=== PATIENT | male | born 1970 | race American Indian/Alaskan Native ===

== ENCOUNTER 2018-05-16 22:48 | Inpatient (IN) | payer SELFPAY ==
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
[2018-05-16] MEDS ORDERED: NORMODYNE IV ONE (23:18)
--- NOTE | 2018-05-16 23:27 | Cat Scan Report ---
PROCEDURE: CT HEAD/BRAIN WO CON TECHNIQUE: Computerized tomography of the head was performed without contrast material. CT DOSE LENGTH PRODUCT: 954.2 mGycm HISTORY: neuro deficits <6hrs or sx present upon awakening COMPARISONS: None . FINDINGS: Skull and scalp: Normal . Paranasal sinuses: Normal . Ventricles and subarachnoid spaces: Normal . Cerebrum: No evidence of hemorrhage, acute infarction or mass . Cerebellum and brainstem: No evidence of hemorrhage, acute infarction or mass . Vasculature: Normal . Other: None . ASPECTS: 10 IMPRESSION: There is no evidence of an acute intracranial process . This document is electronically signed by Tracey Peres DO., May 16 2018 11:26:03 PM ET
[2018-05-16] MEDS ORDERED: NITRO-BID 2% TP ONE (23:29)
--- NOTE | 2018-05-16 23:31 | Emergency Department Report ---
HPI - General Chief Complaint: Syncope Time Seen by Provider: 05/16/18 22:51 - HPI HPI: [facility] Asked to see this patient in telemedicine consultation. Consultation was performed with assistance of ancillary/medical staff at bedside. Comments: Last Known normal 2219 Door Time:2248 [facility] Contacted: 2249 [facility] first log in: 2253 NIHSS assessment time: 2319 Needle Time: no iv tpa Call back time: 2319 HPI: 48 yom with nausea/vomiting today went to [facility] for medications. Later he was having intense chest pain with nausea and EMS was called. He was being transported in ambulance when he briefly lost consciousness and when he awoke he had left facial droop and left sided weakness. He underwent ct scan head and upon return sxs have markedly improved, he appears some what restless but is coherent. He denied to EMS any prior concern for chest pain. VSS Gen Wn/Wd in Nad TeleStroke Assessment: LOC: 0 LOC questions: 0 LOC Commands : 0 Gaze : 0 Visual [place] : 0 Facial movements : 0 Upper limb Motor 0 Lower limb Motor 0 Limb Coordination - 0 Sensory - - 0 Language - 0 Speech - 1 Neglect / extinction - 0 NIHSS Score: 1 IMPRESSION TIA RO Stroke Angina of unclear etiology Medical Decision Making: Patient is not candidate for alteplase due to non focal / localizing exam Not an IR candidate as low clinical suspicion for LVO by neurologic assessment. Recommendations: - Daily antithrombotics to initiate now if no contraindication. - agree with cardiac work up for chest pain with cta - Further work up with Stroke labs, MRI brain, ECHO, NIVS Carotid will be deferred to inpt neurology service - Needs Inpatient Neurology consultation and follow up - Thank you for allowing us to participate in the care of your patient, if there are any questions please don't hesitate to contact us Discussed plan of care with patient/family/hospital staff Physician: Ulices Wright, DO [facility] ED Past Medical Hx - Past Medical History Previous Medical History?: Yes Hx Hypertension: Yes Hx Diabetes: Yes (no meds) Hx HIV: Yes Additional medical history: HIV+ - Surgical History Past Surgical History?: Yes Additional Surgical History: l) jaw resection - Social History Smoking Status: Current Every Day Smoker Substance Use Type: None - Medications Home Medications: Home Medications Medication Instructions Recorded Confirmed Last Taken Type Efavirenz/Emtricit/Tenofovr Df 1 each PO QDAY 07/23/13 07/23/13 Unknown History [Atripla Tablet] Oxycodone HCl/Acetaminophen 1 each PO Q6HR PRN #30 tablet 07/23/13 Unknown Rx [Percocet 10-325 mg] Sulfamethoxazole/Trimethoprim 1 each PO DAILY 07/23/13 07/23/13 07/22/13 09:00 History [Bactrim Ds] ED Review of Systems ROS: Stated complaint: POSS CVA Other details as noted in HPI Critical care attestation.: If time is entered above; I have spent that time in minutes in the direct care of this critically ill patient, excluding procedure time. ED Disposition Clinical Impression: TIA (transient ischemic attack) Disposition: OP ADMIT IP TO THIS HOSP Is pt being admited?: Yes Condition: Stable Referrals: LISA SUMMERS MD [Primary Care Provider] - 3-5 Days
--- NOTE | 2018-05-16 23:32 | Cat Scan Report ---
CT ANGIO CHEST CLINICAL INDICATION: Male, 48 years of age. chest pain syncope stroke symptoms COMPARISON: None available. TECHNIQUE: Contiguous axial images were obtained. This CT exam was performed using one or more of th e following dose reduction techniques: automated exposure control, adjustment of the mA and/or kV acc ording to patient size, or use of iterative reconstruction technique. Additional sagittal and coronal reformatted images were obtained. IV contrast administered per institution protocol. Images are subm itted for interpretation. FINDINGS: Heart normal in size. Thoracic aorta normal in caliber. No acute dissection or rupture. No central pulmonary embolus. Distal segmental branches are well evaluated. No pathologically enlarged i ntrathoracic or axillary lymph nodes. Tracheobronchial tree is patent. Mild atelectasis at the lung b ases. No dense airspace consolidation or pleural effusion. There is a small nodule in the right upper lobe measuring 5 mm (series 2, image 38). This creates the appearance of a small filling defect on the coronal images within the adjacent artery. Tiny hiatal hernia. Bony thorax is grossly intact. IMPRESSION: 1. No central pulmonary embolus. Limited evaluation of distal segmental branches. 2. 5 mm nodule right upper lobe. This may be postinflammatory. Follow-up chest CT could be performed to ensure stability if clinically indicated. No large consolidation or effusion. This document is electronically signed by Birdie Jones DO., May 16 2018 11:30:18 PM ET
[2018-05-16 23:43] LABS: Mean Corpuscular HGB Conc 36 % (32-34); Mean Corpuscular Volume 81 fl (84-94); Platelet Count 382 K/mm3 (140-440); Red Blood Count 5.65 M/mm3 (3.65-5.03)
[2018-05-16 23:47] LABS: Hemoglobin 16.7 gm/dl (11.8-15.2)
[2018-05-16 23:48] LABS: Hematocrit 45.8 % (35.5-45.6)
[2018-05-16] MEDS ORDERED: ZOFRAN ONE (23:49)
[2018-05-16 23:56] LABS: BUN/Creatinine Ratio 8; Blood Urea Nitrogen 5 mg/dL (9-20); Calcium 9.3 mg/dL (8.4-10.2); Hemolysis Index 12
[2018-05-17 00:04] LABS: INR 0.92 (0.87-1.13)
[2018-05-17 00:05] LABS: Partial Thromboplastin Time 22.2 Sec. (24.2-36.6)
[2018-05-17] MEDS ORDERED: BABY ASPIRIN PO ONE (00:15)
[2018-05-17] MEDS ORDERED: ZOFRAN ODT PO ONE (00:15)
[2018-05-17] MEDS ORDERED: NACL 0.9% 1000 ML 1,000 ML ONE (01:08)
[2018-05-17] MEDS ORDERED: ZOFRAN IV ONE (02:08)
[2018-05-17] MEDS ORDERED: NACL 0.9% 250ML 250 ML IV ONE (02:09)
[2018-05-17 02:40] LABS: Basophils % (Manual) 0 % (0.0-1.8); Eosinophils % (Manual) 0 % (0.0-4.3); Total Cells Counted 100
[2018-05-17 02:41] LABS: Anisocytosis 1+; Platelet Estimate Consistent w Auto
[2018-05-17] MEDS ORDERED: SODIUM CHLORIDE FLUSH SYRINGE 10 ML INJ PRN (03:54)
[2018-05-17] MEDS ORDERED: SODIUM CHLORIDE FLUSH SYRINGE 10 ML IV PRN (03:57)
[2018-05-17] MEDS ORDERED: TYLENOL PO PRN (03:57)
[2018-05-17] MEDS ORDERED: D50W (25GM) Syringe IV PRN (04:03)
[2018-05-17] MEDS ORDERED: NORMODYNE IV PRN (04:46)
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
[2018-05-17] MEDS: PERCOCET 5/325 PO PRN ×3 (08:05→17:57)
[2018-05-17] MEDS: COREG PO SCH ×3 (08:27→22:18)
[2018-05-17] MEDS: LOVENOX SUB-Q SCH ×2 (08:27→10:06)
[2018-05-17] MEDS: ZOFRAN IV PRN ×2 (08:27→17:24)
[2018-05-17] MEDS: NORVASC PO SCH ×2 (08:28→10:07)
[2018-05-17] MEDS: HumaLOG SUB-Q SCH ×4 (08:35→22:19)
[2018-05-17] MEDS: NS/KCL 20MEQ 20 MEQ/1,000 ML BAG IV SCH ×2 (08:35→17:24)
[2018-05-17] MEDS: SODIUM CHLORIDE FLUSH SYRINGE 10 ML IV SCH ×2 (09:30→22:18)
[2018-05-17] MEDS ORDERED: NORVASC PO SCH (10:00)
[2018-05-17] MEDS ORDERED: AMBIEN PO PRN (11:05)
--- NOTE | 2018-05-17 11:09 | Event Note ---
Date: 05/17/18 Patient admitted earlier for the management of CVA symptoms, patient was seen and evaluated this morning. Labs and imaging were reviewed. Patient's complaining generalized pain is very anxious. MRI is pending, neurology consulted. Continue management as outlined in H&P.
--- NOTE | 2018-05-17 12:17 | Progress Note ---
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 this will need to be checked CT of head personally reviewed and is normal to my view Objective - Vital Sign Vital Signs - 12hr 05/17/18 05/17/18 05/17/18 00:30 00:45 01:00 Temperature Pulse Rate 93 H 96 H 103 H Respiratory 14 18 19 Rate Blood Pressure 96/57 105/66 84/52 O2 Sat by Pulse 98 98 Oximetry 05/17/18 05/17/18 05/17/18 01:16 01:30 01:46 Temperature Pulse Rate 100 H 99 H 103 H Respiratory 18 20 15 Rate Blood Pressure 67/39 68/41 101/58 O2 Sat by Pulse 93 96 99 Oximetry 05/17/18 05/17/18 05/17/18 02:00 02:16 02:30 Temperature Pulse Rate 103 H 108 H 109 H Respiratory 20 16 15 Rate Blood Pressure 101/58 141/100 131/92 O2 Sat by Pulse 99 99 Oximetry 05/17/18 05/17/18 05/17/18 02:40 02:50 03:00 Temperature Pulse Rate 102 H 106 H 109 H Respiratory 10 L 8 L 22 Rate Blood Pressure 131/92 152/93 162/90 O2 Sat by Pulse 98 95 97 Oximetry 05/17/18 05/17/18 05/17/18 03:10 03:20 03:30 Temperature Pulse Rate 105 H 106 H 106 H Respiratory 16 22 14 Rate Blood Pressure 162/90 174/90 170/108 O2 Sat by Pulse 94 95 97 Oximetry 05/17/18 05/17/18 05/17/18 03:40 03:50 04:00 Temperature Pulse Rate 107 H 107 H 104 H Respiratory 13 13 17 Rate Blood Pressure 170/108 166/83 170/95 O2 Sat by Pulse 96 Oximetry 05/17/18 05/17/18 05/17/18 04:10 04:20 04:30 Temperature Pulse Rate 102 H 106 H 105 H Respiratory 17 20 19 Rate Blood Pressure 170/95 139/82 139/82 O2 Sat by Pulse Oximetry 05/17/18 05/17/18 05/17/18 04:40 04:50 05:00 Temperature Pulse Rate 106 H 106 H 103 H Respiratory 18 19 18 Rate Blood Pressure 131/72 126/72 117/71 O2 Sat by Pulse Oximetry 05/17/18 05/17/18 05/17/18 05:10 05:30 05:45 Temperature Pulse Rate 103 H 102 H 102 H Respiratory 20 19 19 Rate Blood Pressure 131/72 127/79 115/61 O2 Sat by Pulse Oximetry 05/17/18 05/17/18 05/17/18 06:00 06:15 08:22 Temperature 98.2 F Pulse Rate 116 H 100 H Respiratory 16 19 20 Rate Blood Pressure 115/61 116/78 192/113 O2 Sat by Pulse Oximetry 05/17/18 05/17/18 05/17/18 08:27 09:49 10:34 Temperature Pulse Rate 88 88 Respiratory Rate Blood Pressure 192/113 O2 Sat by Pulse 93 Oximetry - Laboratory Findings CBC and BMP: 05/16/18 23:37 05/16/18 23:37 Abnormal Lab Findings: Abnormal Labs 05/16/18 05/16/18 05/16/18 23:37 23:37 23:37 RBC 5.65 H Hgb 16.7 H Hct 45.8 H MCV 81 L MCHC 36 H APTT 22.2 L Thrombin Time Sodium 136 L Chloride 97.2 L Carbon Dioxide 20 L BUN 5 L Creatinine 0.6 L Glucose 205 H POC Glucose 05/16/18 05/17/18 05/17/18 23:37 08:19 11:41 RBC Hgb Hct MCV MCHC APTT Thrombin Time 13.7 L Sodium Chloride Carbon Dioxide BUN Creatinine Glucose POC Glucose 194 H 245 H
--- NOTE | 2018-05-17 13:07 | Vascular Lab Report ---
PROCEDURE: VL CAROTID DUPLEX BILAT TECHNIQUE: Carotid duplex Doppler ultrasound HISTORY: TIA COMPARISON: None FINDINGS: There is a mild degree of atherosclerotic plaque carotid bulbs. There is no abnormal elevation in flow velocity. ICA/CCA velocity ratios are normal, 0.51 the right a nd 0.60 on the left. There is no evidence of hemodynamically significant stenosis. Specifically, find ings indicate stenoses of less than 50%. Vertebral artery flow is antegrade bilaterally. IMPRESSION: No evidence of any hemodynamically carotid stenosis. This document is electronically signed by Myla Patel MD., May 17 2018 01:05:51 PM ET
[2018-05-17] MEDS: LANTUS SUB-Q SCH (22:18)
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
[2018-05-18] MEDS: PERCOCET 5/325 PO PRN ×2 (04:58→11:39)
[2018-05-18] MEDS: ZOFRAN IV PRN ×2 (04:59→17:32)
[2018-05-18 07:29] LABS: Alanine Aminotransferase 12 units/L (7-56); Albumin 3.6 g/dL (3.9-5); BUN/Creatinine Ratio 11; Blood Urea Nitrogen 8 mg/dL (9-20); Hemolysis Index 20; LDL Cholesterol,Direct 97 mg/dL (50-130)
[2018-05-18 07:37] LABS: HDL Cholesterol 29 mg/dL (40-59)
[2018-05-18] MEDS: HumaLOG SUB-Q SCH ×4 (08:30→22:00)
[2018-05-18 08:57] LABS: Chol/HDL Ratio 4.51 %
[2018-05-18] MEDS: NORVASC PO SCH (11:00)
[2018-05-18] MEDS: COREG PO SCH ×2 (11:00→21:49)
[2018-05-18] MEDS: LOVENOX SUB-Q SCH (11:00)
[2018-05-18] MEDS: SODIUM CHLORIDE FLUSH SYRINGE 10 ML IV SCH ×2 (11:00→21:49)
[2018-05-18] MEDS ORDERED: NON-FORMULARY (Oxycodone Hcl/Acetaminophen [Percocet 10/325 Mg] 1 EACH) PO PRN (15:47)
--- NOTE | 2018-05-18 15:51 | Progress Note ---
Assessment and Plan Assessment and plan: Patient is a 48-year-old -[place] male with hx of HTN, HIV on HAART and DM2 who presented to the ED via EMS for few hours history of chest pain. He described it as mid sternal in location, sharp in character, nonradiating, constant in duration and rated 10 over 10. No known aggravating or relieving factors. He has associated shortness of breath, palpitation, nausea with vomiting times multiple episodes and lightheadedness. EMS witnessed syncopal episode. He was unresponsive for 15 seconds. He awakened with slurred speech, left facial droop and left hemiparesis. Time of onset was 2240. The weakness subsequently improved. He denies headaches, fever, chills, cough, diaphoresis, sore throat, runny nose or congestion, leg swelling, orthopnea or PND. No abdominal pain, constipation, diarrhea, dysuria or frequency Chest pain, rule out ACS -Chest pain pathway -stress test ordered TIA, rule out acute stroke -TIA/stroke protocol -Further evaluation with MRI brain, carotid duplex and echocardiogram Clustophobia, will give valium prior to procedure Hypertensive crisis -On antihypertensives, adjust as needed DM2 with hyperglycemia -On SSI and Lantus Metabolic acidosis -On IVF, will monitor level HIV disease -Resume home meds 5mm nodule RT UL per chest imaging -For out-pt f/u DVT prophylaxis with Lovenox Disp: for d/c when medically stable 05/18/18: ?seizure per Neurology, No Anti-seizure medication. 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 Denies nausea vomiting or diarrhea. Hospitalist Physical - Physical exam Narrative exam: General appearance: Present: no acute distress, obese - EENT Eyes: Present: PERRL, EOM intact ENT: hearing intact, clear oral mucosa - Neck Neck: Present: supple, normal ROM, LEFT NECK ENLARGED - Respiratory Respiratory effort: normal Respiratory: bilateral: CTA - Cardiovascular Rhythm: regular (tachycardia) Heart Sounds: Present: S1 & S2. Absent: rub, click - Extremities Extremities: No edema Peripheral Pulses: within normal limits - Abdominal General gastrointestinal: Present: soft, non-tender, non-distended, normal bowel sounds Male genitourinary: Present: deferred - Integumentary Integumentary: Present: clear, warm, dry - Musculoskeletal Musculoskeletal: gait normal, strength equal bilaterally - Psychiatric Psychiatric: appropriate mood/affect, intact judgment & insight - Neurologic Neurologic: CNII-XII intact, moves all extremities - Constitutional Vitals: Temp Pulse Resp BP Pulse Ox 97.9 F 88 18 108/70 97 05/18/18 03:25 05/18/18 11:00 05/18/18 03:25 05/18/18 11:00 05/18/18 03:25 General appearance: Present: no acute distress, obese Results - Labs CBC & Chem 7: 05/19/18 05:28 05/19/18 05:28 Labs: Laboratory Last Values WBC 9.6 K/mm3 (4.5-11.0) 05/16/18 23:37 RBC 5.65 M/mm3 (3.65-5.03) H 05/16/18 23:37 Hgb 16.7 gm/dl (11.8-15.2) H 05/16/18 23:37 Hct 45.8 % (35.5-45.6) H 05/16/18 23:37 MCV 81 fl (84-94) L 05/16/18 23:37 MCH 30 pg (28-32) 05/16/18 23:37 MCHC 36 % (32-34) H 05/16/18 23:37 RDW 14.0 % (13.2-15.2) 05/16/18 23:37 Plt Count 382 K/mm3 (140-440) 05/16/18 23:37 Add Manual Diff Complete 05/16/18 23:37 Total Counted 100 05/16/18 23:37 Seg Neuts % (Manual) 70.0 % (40.0-70.0) 05/16/18 23:37 Band Neutrophils % 0 % 05/16/18 23:37 Lymphocytes % (Manual) 23.0 % (13.4-35.0) 05/16/18 23:37 Reactive Lymphs % (Man) 0 % 05/16/18 23:37 Monocytes % (Manual) 7.0 % (0.0-7.3) 05/16/18 23:37 Eosinophils % (Manual) 0 % (0.0-4.3) 05/16/18 23:37 Basophils % (Manual) 0 % (0.0-1.8) 05/16/18 23:37 Metamyelocytes % 0 % 05/16/18 23:37 Myelocytes % 0 % 05/16/18 23:37 Promyelocytes % 0 % 05/16/18 23:37 Blast Cells % 0 % 05/16/18 23:37 Nucleated RBC % Not Reportable 05/16/18 23:37 Seg Neutrophils # Man 6.7 K/mm3 (1.8-7.7) 05/16/18 23:37 Band Neutrophils # 0.0 K/mm3 05/16/18 23:37 Lymphocytes # (Manual) 2.2 K/mm3 (1.2-5.4) 05/16/18 23:37 Abs React Lymphs (Man) 0.0 K/mm3 05/16/18 23:37 Monocytes # (Manual) 0.7 K/mm3 (0.0-0.8) 05/16/18 23:37 Eosinophils # (Manual) 0.0 K/mm3 (0.0-0.4) 05/16/18 23:37 Basophils # (Manual) 0.0 K/mm3 (0.0-0.1) 05/16/18 23:37 Metamyelocytes # 0.0 K/mm3 05/16/18 23:37 Myelocytes # 0.0 K/mm3 05/16/18 23:37 Promyelocytes # 0.0 K/mm3 05/16/18 23:37 Blast Cells # 0.0 K/mm3 05/16/18 23:37 WBC Morphology Not Reportable 05/16/18 23:37 Hypersegmented Neuts Not Reportable 05/16/18 23:37 Hyposegmented Neuts Not Reportable 05/16/18 23:37 Hypogranular Neuts Not Reportable 05/16/18 23:37 Smudge Cells Not Reportable 05/16/18 23:37 Toxic Granulation Not Reportable 05/16/18 23:37 Toxic Vacuolation Not Reportable 05/16/18 23:37 Dohle Bodies Not Reportable 05/16/18 23:37 Pelger-Huet Anomaly Not Reportable 05/16/18 23:37 Leticia Rods Not Reportable 05/16/18 23:37 Platelet Estimate Consistent w auto 05/16/18 23:37 Clumped Platelets Not Reportable 05/16/18 23:37 Plt Clumps, EDTA Not Reportable 05/16/18 23:37 Large Platelets Not Reportable 05/16/18 23:37 Giant Platelets Not Reportable 05/16/18 23:37 Platelet Satelliting Not Reportable 05/16/18 23:37 Plt Morphology Comment Not Reportable 05/16/18 23:37 RBC Morphology Not Reportable 05/16/18 23:37 Dimorphic RBCs Not Reportable 05/16/18 23:37 Polychromasia Not Reportable 05/16/18 23:37 Hypochromasia Not Reportable 05/16/18 23:37 Poikilocytosis Not Reportable 05/16/18 23:37 Anisocytosis 1+ 05/16/18 23:37 Microcytosis Not Reportable 05/16/18 23:37 Macrocytosis Not Reportable 05/16/18 23:37 Spherocytes Not Reportable 05/16/18 23:37 Pappenheimer Bodies Not Reportable 05/16/18 23:37 Sickle Cells Not Reportable 05/16/18 23:37 Target Cells Not Reportable 05/16/18 23:37 Tear Drop Cells Not Reportable 05/16/18 23:37 Ovalocytes Not Reportable 05/16/18 23:37 Helmet Cells Not Reportable 05/16/18 23:37 [place] Bodies Not Reportable 05/16/18 23:37 [place] Rings Not Reportable 05/16/18 23:37 [place] Cells Not Reportable 05/16/18 23:37 Bite Cells Not Reportable 05/16/18 23:37 Crenated Cell Not Reportable 05/16/18 23:37 Elliptocytes Not Reportable 05/16/18 23:37 Acanthocytes (Spur) Not Reportable 05/16/18 23:37 Rouleaux Not Reportable 05/16/18 23:37 Hemoglobin C Crystals Not Reportable 05/16/18 23:37 Schistocytes Not Reportable 05/16/18 23:37 Malaria parasites Not Reportable 05/16/18 23:37 Aris Bodies Not Reportable 05/16/18 23:37 Hem Pathologist Commnt No 05/16/18 23:37 PT 12.9 Sec. (12.2-14.9) 05/16/18 23:37 INR 0.92 (0.87-1.13) 05/16/18 23:37 APTT 22.2 Sec. (24.2-36.6) L 05/16/18 23:37 Thrombin Time 13.7 Sec. (15.1-19.6) L 05/16/18 23:37 Sodium 138 mmol/L (137-145) 05/18/18 06:40 Potassium 3.8 mmol/L (3.6-5.0) 05/18/18 06:40 Chloride 100.4 mmol/L (98-107) 05/18/18 06:40 Carbon Dioxide 24 mmol/L (22-30) 05/18/18 06:40 Anion Gap 17 mmol/L 05/18/18 06:40 BUN 8 mg/dL (9-20) L 05/18/18 06:40 Creatinine 0.7 mg/dL (0.8-1.5) L 05/18/18 06:40 Estimated GFR > 60 ml/min 05/18/18 06:40 BUN/Creatinine Ratio 11 % 05/18/18 06:40 Glucose 185 mg/dL (75-100) H 05/18/18 06:40 POC Glucose 245 (70-105) H 05/17/18 11:41 Hemoglobin A1c 11.7 % (4-6) H 05/18/18 06:40 Calcium 9.0 mg/dL (8.4-10.2) 05/18/18 06:40 Total Bilirubin 1.00 mg/dL (0.1-1.2) 05/18/18 06:40 AST 12 units/L (5-40) 05/18/18 06:40 ALT 12 units/L (7-56) 05/18/18 06:40 Alkaline Phosphatase 86 units/L (35-129) 05/18/18 06:40 Troponin T < 0.010 ng/mL (0.00-0.029) 05/17/18 07:59 Total Protein 6.7 g/dL (6.3-8.2) 05/18/18 06:40 Albumin 3.6 g/dL (3.9-5) L 05/18/18 06:40 Albumin/Globulin Ratio 1.2 % 05/18/18 06:40 Triglycerides 98 mg/dL (2-149) 05/18/18 06:40 Cholesterol 131 mg/dL (50-199) 05/18/18 06:40 LDL Cholesterol Direct 97 mg/dL (50-130) 05/18/18 06:40 HDL Cholesterol 29 mg/dL (40-59) L 05/18/18 06:40 Cholesterol/HDL Ratio 4.51 % 05/18/18 06:40 Plasma/Serum Alcohol < 0.01 % (0-0.07) 05/16/18 23:37 Active Medications - Current Medications Current Medications: Generic Name Dose Route Start Last Admin Trade Name Freq PRN Reason Stop Dose Admin Acetaminophen 650 mg 05/17/18 03:57 Tylenol PO Q4H PRN Pain MILD(1-3)/Fever >100.5/MARIA Amlodipine Besylate 10 mg 05/17/18 10:00 05/18/18 11:00 Norvasc PO Not Given QDAY VANESA Atorvastatin Calcium 40 mg 05/17/18 22:00 05/17/18 22:18 Lipitor PO 40 mg QHS VANESA Administration Carvedilol 25 mg 05/17/18 10:00 05/18/18 11:00 Coreg PO 25 mg BID VANESA Administration Clonazepam 0.5 mg 05/17/18 11:06 Klonopin PO BID PRN Anxiety Dextrose 50 ml 05/17/18 04:03 D50w (25gm) Syringe IV PRN PRN Hypoglycemia Enoxaparin Sodium 40 mg 05/17/18 10:00 05/18/18 11:00 Lovenox SUB-Q 40 mg QDAY VANESA Administration Insulin Glargine 15 units 05/17/18 22:00 05/17/18 22:18 Lantus SUB-Q 15 units QHS VANESA Administration Insulin Human Lispro 0 unit 05/17/18 07:30 05/18/18 12:30 Humalog SUB-Q 2 unit ACHS VANESA Administration Protocol Labetalol HCl 10 mg 05/17/18 04:46 05/17/18 08:28 Normodyne IV 10 mg Q4H PRN Administration Blood Pressure Miscellaneous Medication 1 each 05/19/18 10:00 Efavirenz/Emtricit/Tenofovr Df [Atripla Tablet] PO QDAY [facility] Miscellaneous Medication 1 each 05/18/18 15:47 Oxycodone Hcl/Acetaminophen [Percocet 10/325 Mg] PO Q6HR PRN Pain Ondansetron HCl 4 mg 05/17/18 03:57 05/18/18 04:59 Zofran IV 4 mg Q8H PRN Administration Nausea And Vomiting Oxycodone/Acetaminophen 1 tab 05/17/18 03:57 05/18/18 11:39 Percocet 5/325 PO 1 tab Q6H PRN Administration Pain, Moderate (4-6) Sodium Chloride 10 ml 05/17/18 10:00 05/18/18 11:00 Sodium Chloride Flush Syringe 10 Ml IV 10 ml BID VANESA Administration Sodium Chloride 10 ml 05/17/18 03:57 Sodium Chloride Flush Syringe 10 Ml IV PRN PRN LINE FLUSH Trimethoprim/Sulfamethoxazole 1 each 05/19/18 10:00 Bactrim Ds PO DAILY VANESA Zolpidem Tartrate 5 mg 05/17/18 11:05 05/17/18 22:18 Ambien PO 5 mg QHS PRN Administration Sleep
[2018-05-18] MEDS ORDERED: ROXICODONE PO PRN (16:12)
[2018-05-18] MEDS ORDERED: PERCOCET 5/325 PO PRN (16:13)
--- NOTE | 2018-05-18 17:07 | Progress Note ---
Subjective Date of service: 05/18/18 Interval history: await getting MRI to further comment on the course of the stroke pending Objective - Vital Sign Vital Signs - 12hr 05/18/18 11:00 Pulse Rate 88 Blood Pressure 108/70 - Laboratory Findings CBC and BMP: 05/16/18 23:37 05/18/18 06:40 Abnormal Lab Findings: Abnormal Labs 05/16/18 05/16/18 05/16/18 22:54 23:37 23:37 RBC 5.65 H Hgb 16.7 H Hct 45.8 H MCV 81 L MCHC 36 H APTT 22.2 L Thrombin Time Sodium Chloride Carbon Dioxide BUN Creatinine Glucose POC Glucose 203 H Hemoglobin A1c Albumin HDL Cholesterol 05/16/18 05/16/18 05/17/18 23:37 23:37 08:19 RBC Hgb Hct MCV MCHC APTT Thrombin Time 13.7 L Sodium 136 L Chloride 97.2 L Carbon Dioxide 20 L BUN 5 L Creatinine 0.6 L Glucose 205 H POC Glucose 194 H Hemoglobin A1c Albumin HDL Cholesterol 05/17/18 05/18/18 05/18/18 11:41 06:40 06:40 RBC Hgb Hct MCV MCHC APTT Thrombin Time Sodium Chloride Carbon Dioxide BUN 8 L Creatinine 0.7 L Glucose 185 H POC Glucose 245 H Hemoglobin A1c 11.7 H Albumin 3.6 L HDL Cholesterol 29 L
[2018-05-18] MEDS: ASPIRIN PO SCH (17:28)
[2018-05-18] MEDS: LANTUS SUB-Q SCH (21:49)
[2018-05-19 06:03] LABS: Hematocrit 40.7 % (35.5-45.6); Hemoglobin 13.7 gm/dl (11.8-15.2); Mean Corpuscular HGB Conc 34 % (32-34); Mean Corpuscular Volume 83 fl (84-94); Platelet Count 326 K/mm3 (140-440); Red Blood Count 4.92 M/mm3 (3.65-5.03)
[2018-05-19 06:26] LABS: BUN/Creatinine Ratio 13; Blood Urea Nitrogen 9 mg/dL (9-20); Calcium 8.8 mg/dL (8.4-10.2); Hemolysis Index 7
--- NOTE | 2018-05-19 07:55 | Progress Note ---
Assessment and Plan Assessment and plan: Patient is a 48-year-old -[place] male with hx of HTN, HIV on HAART and DM2 who presented to the ED via EMS for few hours history of chest pain. He described it as mid sternal in location, sharp in character, nonradiating, constant in duration and rated 10 over 10. No known aggravating or relieving factors. He has associated shortness of breath, palpitation, nausea with vomiting times multiple episodes and lightheadedness. EMS witnessed syncopal episode. He was unresponsive for 15 seconds. He awakened with slurred speech, left facial droop and left hemiparesis. Time of onset was 2240. The weakness subsequently improved. He denies headaches, fever, chills, cough, diaphoresis, sore throat, runny nose or congestion, leg swelling, orthopnea or PND. No abdominal pain, constipation, diarrhea, dysuria or frequency Chest pain, rule out ACS -Chest pain pathway -Stress test ordered and pending TIA, rule out acute stroke -TIA/stroke protocol -Further evaluation with MRI brain (-), carotid duplex and echocardiogram -Clustophobia, will give ativan prior to procedure Hypertensive crisis -On antihypertensives, adjust as needed DM2 with hyperglycemia -On SSI and Lantus Metabolic acidosis -On IVF, will monitor level HIV disease -Resume home meds 5mm nodule RT UL per chest imaging -For out-pt f/u ?seizure per Neurology, No Anti-seizure medication. 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 Denies nausea vomiting or diarrhea. Hospitalist Physical - Physical exam Narrative exam: General appearance: Present: no acute distress, obese - EENT Eyes: Present: PERRL, EOM intact ENT: hearing intact, clear oral mucosa - Neck Neck: Present: supple, normal ROM, LEFT NECK ENLARGED - Respiratory Respiratory effort: normal Respiratory: bilateral: CTA - Cardiovascular Rhythm: regular (tachycardia) Heart Sounds: Present: S1 & S2. Absent: rub, click - Extremities Extremities: No edema Peripheral Pulses: within normal limits - Abdominal General gastrointestinal: Present: soft, non-tender, non-distended, normal bowel sounds Male genitourinary: Present: deferred - Integumentary Integumentary: Present: clear, warm, dry - Musculoskeletal Musculoskeletal: gait normal, strength equal bilaterally - Psychiatric Psychiatric: appropriate mood/affect, intact judgment & insight - Neurologic Neurologic: CNII-XII intact, moves all extremities - Constitutional Vitals: Temp Pulse Resp BP Pulse Ox 97.8 F 76 18 114/68 100 05/19/18 05:00 05/19/18 05:45 05/19/18 05:00 05/19/18 05:00 05/19/18 05:00 General appearance: Present: no acute distress, obese Results - Labs CBC & Chem 7: 05/19/18 05:28 05/19/18 05:28 Labs: Laboratory Last Values WBC 6.1 K/mm3 (4.5-11.0) 05/19/18 05:28 RBC 4.92 M/mm3 (3.65-5.03) 05/19/18 05:28 Hgb 13.7 gm/dl (11.8-15.2) D 05/19/18 05:28 Hct 40.7 % (35.5-45.6) 05/19/18 05:28 MCV 83 fl (84-94) L 05/19/18 05:28 MCH 28 pg (28-32) 05/19/18 05:28 MCHC 34 % (32-34) 05/19/18 05:28 RDW 14.0 % (13.2-15.2) 05/19/18 05:28 Plt Count 326 K/mm3 (140-440) 05/19/18 05:28 Add Manual Diff Complete 05/16/18 23:37 Total Counted 100 05/16/18 23:37 Seg Neuts % (Manual) 70.0 % (40.0-70.0) 05/16/18 23:37 Band Neutrophils % 0 % 05/16/18 23:37 Lymphocytes % (Manual) 23.0 % (13.4-35.0) 05/16/18 23:37 Reactive Lymphs % (Man) 0 % 05/16/18 23:37 Monocytes % (Manual) 7.0 % (0.0-7.3) 05/16/18 23:37 Eosinophils % (Manual) 0 % (0.0-4.3) 05/16/18 23:37 Basophils % (Manual) 0 % (0.0-1.8) 05/16/18 23:37 Metamyelocytes % 0 % 05/16/18 23:37 Myelocytes % 0 % 05/16/18 23:37 Promyelocytes % 0 % 05/16/18 23:37 Blast Cells % 0 % 05/16/18 23:37 Nucleated RBC % Not Reportable 05/16/18 23:37 Seg Neutrophils # Man 6.7 K/mm3 (1.8-7.7) 05/16/18 23:37 Band Neutrophils # 0.0 K/mm3 05/16/18 23:37 Lymphocytes # (Manual) 2.2 K/mm3 (1.2-5.4) 05/16/18 23:37 Abs React Lymphs (Man) 0.0 K/mm3 05/16/18 23:37 Monocytes # (Manual) 0.7 K/mm3 (0.0-0.8) 05/16/18 23:37 Eosinophils # (Manual) 0.0 K/mm3 (0.0-0.4) 05/16/18 23:37 Basophils # (Manual) 0.0 K/mm3 (0.0-0.1) 05/16/18 23:37 Metamyelocytes # 0.0 K/mm3 05/16/18 23:37 Myelocytes # 0.0 K/mm3 05/16/18 23:37 Promyelocytes # 0.0 K/mm3 05/16/18 23:37 Blast Cells # 0.0 K/mm3 05/16/18 23:37 WBC Morphology Not Reportable 05/16/18 23:37 Hypersegmented Neuts Not Reportable 05/16/18 23:37 Hyposegmented Neuts Not Reportable 05/16/18 23:37 Hypogranular Neuts Not Reportable 05/16/18 23:37 Smudge Cells Not Reportable 05/16/18 23:37 Toxic Granulation Not Reportable 05/16/18 23:37 Toxic Vacuolation Not Reportable 05/16/18 23:37 Dohle Bodies Not Reportable 05/16/18 23:37 Pelger-Huet Anomaly Not Reportable 05/16/18 23:37 Leticia Rods Not Reportable 05/16/18 23:37 Platelet Estimate Consistent w auto 05/16/18 23:37 Clumped Platelets Not Reportable 05/16/18 23:37 Plt Clumps, EDTA Not Reportable 05/16/18 23:37 Large Platelets Not Reportable 05/16/18 23:37 Giant Platelets Not Reportable 05/16/18 23:37 Platelet Satelliting Not Reportable 05/16/18 23:37 Plt Morphology Comment Not Reportable 05/16/18 23:37 RBC Morphology Not Reportable 05/16/18 23:37 Dimorphic RBCs Not Reportable 05/16/18 23:37 Polychromasia Not Reportable 05/16/18 23:37 Hypochromasia Not Reportable 05/16/18 23:37 Poikilocytosis Not Reportable 05/16/18 23:37 Anisocytosis 1+ 05/16/18 23:37 Microcytosis Not Reportable 05/16/18 23:37 Macrocytosis Not Reportable 05/16/18 23:37 Spherocytes Not Reportable 05/16/18 23:37 Pappenheimer Bodies Not Reportable 05/16/18 23:37 Sickle Cells Not Reportable 05/16/18 23:37 Target Cells Not Reportable 05/16/18 23:37 Tear Drop Cells Not Reportable 05/16/18 23:37 Ovalocytes Not Reportable 05/16/18 23:37 Helmet Cells Not Reportable 05/16/18 23:37 [place] Bodies Not Reportable 05/16/18 23:37 Cullen Rings Not Reportable 05/16/18 23:37 Flint Cells Not Reportable 05/16/18 23:37 Bite Cells Not Reportable 05/16/18 23:37 Crenated Cell Not Reportable 05/16/18 23:37 Elliptocytes Not Reportable 05/16/18 23:37 Acanthocytes (Spur) Not Reportable 05/16/18 23:37 Rouleaux Not Reportable 05/16/18 23:37 Hemoglobin C Crystals Not Reportable 05/16/18 23:37 Schistocytes Not Reportable 05/16/18 23:37 Malaria parasites Not Reportable 05/16/18 23:37 Aris Bodies Not Reportable 05/16/18 23:37 Hem Pathologist Commnt No 05/16/18 23:37 PT 12.9 Sec. (12.2-14.9) 05/16/18 23:37 INR 0.92 (0.87-1.13) 05/16/18 23:37 APTT 22.2 Sec. (24.2-36.6) L 05/16/18 23:37 Thrombin Time 13.7 Sec. (15.1-19.6) L 05/16/18 23:37 Sodium 135 mmol/L (137-145) L 05/19/18 05:28 Potassium 3.4 mmol/L (3.6-5.0) L 05/19/18 05:28 Chloride 95.0 mmol/L (98-107) L 05/19/18 05:28 Carbon Dioxide 27 mmol/L (22-30) 05/19/18 05:28 Anion Gap 16 mmol/L 05/19/18 05:28 BUN 9 mg/dL (9-20) 05/19/18 05:28 Creatinine 0.7 mg/dL (0.8-1.5) L 05/19/18 05:28 Estimated GFR > 60 ml/min 05/19/18 05:28 BUN/Creatinine Ratio 13 % 05/19/18 05:28 Glucose 259 mg/dL (75-100) H 05/19/18 05:28 POC Glucose 245 (70-105) H 05/17/18 11:41 Hemoglobin A1c 11.7 % (4-6) H 05/18/18 06:40 Calcium 8.8 mg/dL (8.4-10.2) 05/19/18 05:28 Total Bilirubin 1.00 mg/dL (0.1-1.2) 05/18/18 06:40 AST 12 units/L (5-40) 05/18/18 06:40 ALT 12 units/L (7-56) 05/18/18 06:40 Alkaline Phosphatase 86 units/L (35-129) 05/18/18 06:40 Troponin T < 0.010 ng/mL (0.00-0.029) 05/17/18 07:59 Total Protein 6.7 g/dL (6.3-8.2) 05/18/18 06:40 Albumin 3.6 g/dL (3.9-5) L 05/18/18 06:40 Albumin/Globulin Ratio 1.2 % 05/18/18 06:40 Triglycerides 98 mg/dL (2-149) 05/18/18 06:40 Cholesterol 131 mg/dL (50-199) 05/18/18 06:40 LDL Cholesterol Direct 97 mg/dL (50-130) 05/18/18 06:40 HDL Cholesterol 29 mg/dL (40-59) L 05/18/18 06:40 Cholesterol/HDL Ratio 4.51 % 05/18/18 06:40 Plasma/Serum Alcohol < 0.01 % (0-0.07) 05/16/18 23:37 Active Medications - Current Medications Current Medications: Generic Name Dose Route Start Last Admin Trade Name Freq PRN Reason Stop Dose Admin Acetaminophen 650 mg 05/17/18 03:57 Tylenol PO Q4H PRN Pain MILD(1-3)/Fever >100.5/MARIA Amlodipine Besylate 10 mg 05/17/18 10:00 05/18/18 11:00 Norvasc PO Not Given QDAY VANESA Aspirin 325 mg 05/18/18 17:00 05/18/18 17:28 Aspirin PO 325 mg QDAY VANESA Administration Atorvastatin Calcium 40 mg 05/17/18 22:00 05/18/18 21:49 Lipitor PO 40 mg QHS VANESA Administration Carvedilol 25 mg 05/17/18 10:00 05/18/18 21:49 Coreg PO 25 mg BID VANESA Administration Clonazepam 0.5 mg 05/17/18 11:06 Klonopin PO BID PRN Anxiety Dextrose 50 ml 05/17/18 04:03 D50w (25gm) Syringe IV PRN PRN Hypoglycemia Efavirenz 600 mg 05/19/18 10:00 Sustiva PO DAILY [facility] Emtricitabine 200 mg 05/19/18 10:00 Emtriva PO DAILY [facility] Enoxaparin Sodium 40 mg 05/17/18 10:00 05/18/18 11:00 Lovenox SUB-Q 40 mg QDAY [facility] Administration Insulin Glargine 15 units 05/17/18 22:00 05/18/18 21:49 Lantus SUB-Q 15 units QHS VANESA Administration Insulin Human Lispro 0 unit 05/17/18 07:30 05/18/18 22:00 Humalog SUB-Q 3 unit ACHS VANESA Administration Protocol Labetalol HCl 10 mg 05/17/18 04:46 05/17/18 08:28 Normodyne IV 10 mg Q4H PRN Administration Blood Pressure Ondansetron HCl 4 mg 05/17/18 03:57 05/18/18 17:32 Zofran IV 4 mg Q8H PRN Administration Nausea And Vomiting Oxycodone HCl 5 mg 05/18/18 16:12 Roxicodone PO Q6H PRN Pain, Moderate (4-6) Oxycodone/Acetaminophen 1 tab 05/18/18 16:13 Percocet 5/325 PO Q6H PRN Pain, Moderate (4-6) Sodium Chloride 10 ml 05/17/18 10:00 05/18/18 21:49 Sodium Chloride Flush Syringe 10 Ml IV 10 ml BID VANESA Administration Sodium Chloride 10 ml 05/17/18 03:57 Sodium Chloride Flush Syringe 10 Ml IV PRN PRN LINE FLUSH Tenofovir Disoproxil Fumarate 300 mg 05/19/18 10:00 Viread PO DAILY [facility] Trimethoprim/Sulfamethoxazole 1 each 05/19/18 10:00 Bactrim Ds PO DAILY [facility] Zolpidem Tartrate 5 mg 05/17/18 11:05 05/17/18 22:18 Ambien PO 5 mg QHS PRN Administration Sleep
[2018-05-19] MEDS ORDERED: ATIVAN IV NR (08:00)
--- NOTE | 2018-05-19 08:03 | Discharge Summary ---
Providers - Providers Date of Admission: 05/17/18 04:45 Attending physician: AI JONES MD 05/17/18 03:55 Occupational Therapy Evaluate and Treat [CONS] Routine Comment: Reason For Exam: Neuro deficits Physical Therapy Evaluation and Treat [CONS] Routine Comment: Reason For Exam: Neuro deficits 05/17/18 07:51 Consult to Physician [CONS] Routine Comment: Consulting Provider: PASHA MICHEL Physician Instructions: Reason For Exam: CVA [facility] Reason for admission: CHEST PAIN Condition: Stable Hospital course: Patient is a 48-year-old -N[place]alese male with hx of HTN, HIV on HAART and DM2 who presented to the ED via EMS for few hours history of chest pain. He described it as mid sternal in location, sharp in character, nonradiating, constant in duration and rated 10 over 10. No known aggravating or relieving factors. He has associated shortness of breath, palpitation, nausea with vomiting times multiple episodes and lightheadedness. EMS witnessed syncopal episode. He was unresponsive for 15 seconds. He awakened with slurred speech, left facial droop and left hemiparesis. Time of onset was 2240. The weakness subsequently improved. He denies headaches, fever, chills, cough, diaphoresis, sore throat, runny nose or congestion, leg swelling, orthopnea or PND. No abdominal pain, constipation, diarrhea, dysuria or frequency Chest pain, rule out ACS -Chest pain pathway, STRESS TEST WAS DONE AND NEGATIVE TIA, rule out acute stroke -TIA/stroke protocol -Further evaluation with carotid duplex and echocardiogram WAS ALSO UNREMARKABLE -Clustophobia, will give ativan prior to procedure -MRI brain negative for acute cva Hypertensive crisis -On antihypertensives, DM2 with hyperglycemia -On SSI and Lantus Metabolic acidosis -Resolved HIV disease -Resume home meds 5mm nodule RT UL per chest imaging -For out-pt f/u Seizure per Neurology, No Anti-seizure medication. Facial cancer surgery S/P J[facility] AND [facility] JUST [facility]AL[facility] PER THE PATIENT IN January Disposition: DC- TO HOME OR SELFCARE Time spent for discharge: 35 MINS Core Measure Documentation - Palliative Care Palliative Care/ Comfort Measures: Not Applicable - Core Measures Any of the following diagnoses?: none Exam - Physical Exam Narrative exam: General appearance: Present: no acute distress, obese - EENT Eyes: Present: PERRL, EOM intact ENT: hearing intact, clear oral mucosa - Neck Neck: Present: supple, normal ROM, LEFT NECK ENLARGED - Respiratory Respiratory effort: normal Respiratory: bilateral: CTA - Cardiovascular Rhythm: regular (tachycardia) Heart Sounds: Present: S1 & S2. Absent: rub, click - Extremities Extremities: No edema Peripheral Pulses: within normal limits - Abdominal General gastrointestinal: Present: soft, non-tender, non-distended, normal bowel sounds Male genitourinary: Present: deferred - Integumentary Integumentary: Present: clear, warm, dry - Musculoskeletal Musculoskeletal: gait normal, strength equal bilaterally - Psychiatric Psychiatric: appropriate mood/affect, intact judgment & insight - Neurologic Neurologic: CNII-XII intact, moves all extremities - Constitutional Vitals: Temp Pulse Resp BP Pulse Ox 97.8 F 76 18 114/68 100 05/19/18 05:00 05/19/18 05:45 05/19/18 05:00 05/19/18 05:00 05/19/18 05:00 Plan Activity: advance as tolerated, fall precautions Diet: low salt, diabetic Special Instructions: record daily BP diary, record blood sugar diary, smoking cessation Additional Instructions[facility] MASS Follow up with: LISA SUMMERS MD [Primary Care Provider] - 7 Days Forms: Discharge Signature Page Prescriptions: Insulin Glargine [Lantus VIAL] 20 units SUB-Q QHS #30 units AtorvaSTATin [Lipitor] 40 mg PO QHS #30 tablet Aspirin [Aspirin TAB] 325 mg PO QDAY #30 tablet Carvedilol [Coreg] 25 mg PO BID #60 tablet clonazePAM [KlonoPIN] 0.5 mg PO BID PRN #30 tablet PRN Reason: Anxiety amLODIPine [Norvasc] 10 mg PO QDAY #30 tablet
[2018-05-19] MEDS: HumaLOG SUB-Q SCH ×2 (08:30→11:30)
[2018-05-19] MEDS ORDERED: K-DUR PO ONE (09:00)
[2018-05-19] MEDS ORDERED: SUSTIVA PO SCH (10:00)
[2018-05-19] MEDS ORDERED: [UNRECOGNIZED DRUG - OTHER] PO SCH (10:00)
[2018-05-19] MEDS ORDERED: BACTRIM DS PO SCH (10:00)
[2018-05-19] MEDS ORDERED: EMTRIVA PO SCH (10:00)
[2018-05-19] MEDS ORDERED: VIREAD PO SCH (10:00)
[2018-05-19] MEDS ORDERED: LEXISCAN IV ONE ×2 (11:04→11:05)
[2018-05-19 11:40] VITALS: BP 117/77
--- NOTE | 2018-05-19 13:48 | Magnetic Resonance Report ---
MRI OF THE BRAIN WITHOUT CONTRAST: HISTORY: TIA PROCEDURE: Multiplanar, multisequence MR imaging of the brain without IV contrast was performed. FINDINGS: Compared to the CT head dated 05/16/18. Most of the sequences are limited secondary to extensive patient motion artifact. Having said that, the brain parenchyma signal intensity and its mckeon white interface are within normal limits on all sequences. No evidence for acute ischemia, hemorrhage or mass. No chronic infarct or extra-axial fluid collection. The midline structures are central. The basal cisterns are patent. Normal ventricular size. The orbital cavities and sella turcica demonstrate no abnormality. The visualized paranasal sinuses and mastoid air cells are well aerated. IMPRESSION: Unremarkable non-enhanced MRI of the brain.
[2018-05-19] MEDS: ASPIRIN PO SCH (13:50)
[2018-05-19] MEDS: COREG PO SCH (13:51)
[2018-05-19] MEDS: LOVENOX SUB-Q SCH (13:52)
[2018-05-19] MEDS: SODIUM CHLORIDE FLUSH SYRINGE 10 ML IV SCH (13:53)
[2018-05-19] MEDS: NORVASC PO SCH (13:53)
[2018-05-19] MEDS ORDERED: K-DUR PO NR (14:00)
[2018-05-19] MEDS ORDERED: LANTUS SUB-Q SCH (22:00)
--- NOTE | 2018-05-21 00:57 | Treadmill Report ---
NUCLEAR CARDIAC IMAGING INDICATION FOR PROCEDURE: Chest pain. Informed consent was obtained. Vasodilator stress was achieved with the intravenous administration of 0.4 mg of Lexiscan per protocol. Rest and stress nuclear cardiac imaging were performed following the intravenous administration of 10 and 28 mCi of technetium 99m Myoview respectively. Images were acquired in a 180-degree arc from 45 degrees ALBERT to 45 degrees LPO. After data acquisition and reconstruction, the images were processed and reoriented into the vertical long, horizontal long, and horizontal short axis slices. A polar color map of the horizontal short axis slices was generated and viewed. The rotating planar images reviewed in cinematic format on the computer console. Gated SPECT imaging demonstrates a left ventricular ejection fraction post-stress of 56%. Left ventricular segmental wall motion appears normal. Myocardial perfusion imaging demonstrates no significant cavity change between stress and rest. There is a small mild persistent inferior wall perfusion defect which in the absence of a significant wall motion abnormality is likely artifactual in origin. Nuclear cardiac imaging demonstrates grossly normal post-stress left ventricular systolic function with no significant evidence for myocardial ischemia or necrosis. [facility]# [id number] PEYMAN/JAVON
== END 2018-05-19 18:45 | disposition home or self-care (01) | DRG 69 ==
LOC: ED 22:48 → 4A 05-17 04:45
PROVIDERS: ADMIT Internal Medicine; ATTEND Internal Medicine
DX: G45.9 Transient cerebral ischemic attack, unspecified (principal); E87.2 Acidosis; B20 Human immunodeficiency virus [HIV] disease; I16.1 Hypertensive emergency; G81.94 Hemiplegia, unspecified affecting left nondominant side; R07.9 Chest pain, unspecified; I10 Essential (primary) hypertension; E11.65 Type 2 diabetes mellitus with hyperglycemia; R91.1 Solitary pulmonary nodule; F17.200 Nicotine dependence, unspecified, uncomplicated; R29.810 Facial weakness
CPT/HCPCS: 36415; 70450; 70551; 71275; 78452; 80048; 80053; 80061; 80320; 82962; 83036; 84484; 85007; 85025; 85027; 85610; 85670; 85730; 93005; 93010; 93017; 93306; 93880; G0378; A9270-GY; A9502; G0480; J1650; J1815; J2060; J2405; J2785; J7030

== ENCOUNTER 2018-06-16 18:28 | Inpatient (IN) | payer SELFPAY ==
[2018-06-16 18:43] LABS: Basophils # (Auto) 0.1 K/mm3 (0.0-0.1); Basophils % (Auto) 0.9 % (0.0-1.8); Eosinophils # (Auto) 0.1 K/mm3 (0.0-0.4); Eosinophils % (Auto) 1.7 % (0.0-4.3); Hematocrit 45.1 % (35.5-45.6); Hemoglobin 15.2 gm/dl (11.8-15.2); Lymphocytes # (Auto) 1.9 K/mm3 (1.2-5.4); Lymphocytes % (Auto) 22.5 % (13.4-35.0); Mean Corpuscular HGB Conc 34 % (32-34); Mean Corpuscular Volume 83 fl (84-94); Monocytes # (Auto) 0.5 K/mm3 (0.0-0.8); Monocytes % (Auto) 5.7 % (0.0-7.3); Platelet Count 326 K/mm3 (140-440); Red Blood Count 5.47 M/mm3 (3.65-5.03); Red Cell Distribution Width 14.5 % (13.2-15.2)
--- NOTE | 2018-06-16 18:52 | Cat Scan Report ---
PROCEDURE: CT head without contrast. TECHNIQUE: Axial scans were done through the brain without contrast. HISTORY: neuro deficits <6hrs or sx present upon awakening COMPARISONS: CT head 05/16/2018. FINDINGS: The ventricles are normal in size. The holguin matter and white matter appear normal. There are no mass lesions. There is no intracranial hemorrhage. The calvarium appears intact. The mastoid air cells and paranasal sinuses are well aerated. IMPRESSION: Normal study. This document is electronically signed by Sam Laboy MD., June 16 2018 06:50:33 PM ET
[2018-06-16 18:54] LABS: INR 0.86 (0.87-1.13); Partial Thromboplastin Time 34.2 Sec. (24.2-36.6)
[2018-06-16] MEDS ORDERED: ZOFRAN ONE (18:56)
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
[2018-06-16 19:09] LABS: BUN/Creatinine Ratio 12; Blood Urea Nitrogen 6 mg/dL (9-20); Calcium 9.4 mg/dL (8.4-10.2); Hemolysis Index 90
[2018-06-16] MEDS ORDERED: ACTIVASE ONE (19:12)
[2018-06-16] MEDS ORDERED: ZOFRAN IV ONE (19:14)
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
[2018-06-16] MEDS ORDERED: DULCOLAX PR PRN (19:40)
[2018-06-16] MEDS ORDERED: PHENERGAN PR PRN (19:40)
[2018-06-16] MEDS ORDERED: TYLENOL PO PRN (19:40)
[2018-06-16] MEDS ORDERED: SODIUM CHLORIDE FLUSH SYRINGE 10 ML IV PRN (19:40)
[2018-06-16] MEDS ORDERED: REGLAN PO PRN (19:40)
[2018-06-16] MEDS ORDERED: MILK OF MAGNESIA PO PRN (19:40)
--- NOTE | 2018-06-16 20:01 | History and Physical Report ---
History of Present Illness Date of examination: 06/16/18 Date of admission: 06/16/2018 Chief complaint: Facial droop, left facia weakness History of present illness: Patient is a 48-year-old male with PMHx of HTN, HIV on HAART, DM2 (uncontrolled), h/o bone cancer s/p left mandible resection (11 yrs ago), who presents to ER with complaint of left sided facial droop, right-sided weakness. Patient states that he went to take a nap, he was fine but when when he woke up he noticed the weakness and the facial droop. Pt and mother at the bedside report that he was hospitalized at the beginning of May for the same symptoms, he saw the neurologist and his symptoms gradually resolved. Pt also complaint of frontal headache, nausea and dry hives, he denies any dizziness, denies any visual changes, he denies extremities weakness, denies any recent illness, fever or chills. Pt had an MRI in the ER that was negative, neurology had recommended admission for his acute symptoms. Medications and Allergies Allergies Allergy/AdvReac Type Severity Reaction Status Date / Time No Known Allergies Allergy Verified 07/23/13 06:34 Home Medications Medication Instructions Recorded Confirmed Last Taken Type Efavirenz/Emtricit/Tenofovr Df 1 each PO QDAY 07/23/13 05/17/18 Unknown History [Atripla Tablet] Oxycodone HCl/Acetaminophen 1 each PO Q6HR PRN #30 tablet 07/23/13 05/17/18 Unknown Rx [Percocet 10/325 mg] Sulfamethoxazole/Trimethoprim 1 each PO DAILY 07/23/13 05/17/18 07/22/13 09:00 History [Bactrim DS TAB] Aspirin [Aspirin TAB] 325 mg PO QDAY #30 tablet 05/19/18 Unknown Rx AtorvaSTATin [Lipitor] 40 mg PO QHS #30 tablet 05/19/18 Unknown Rx Carvedilol [Coreg] 25 mg PO BID #60 tablet 05/19/18 Unknown Rx Insulin Glargine [Lantus VIAL] 20 units SUB-Q QHS #30 units 05/19/18 Unknown Rx amLODIPine [Norvasc] 10 mg PO QDAY #30 tablet 05/19/18 Unknown Rx clonazePAM [KlonoPIN] 0.5 mg PO BID PRN #30 tablet 05/19/18 Unknown Rx Active Meds: Active Medications Acetaminophen (Tylenol) 650 mg PO Q4H PRN PRN Reason: Pain MILD(1-3)/Fever >100.5/MARIA Atorvastatin Calcium (Lipitor) 40 mg PO QHS VANESA Bisacodyl (Dulcolax) 10 mg [place] QDAY PRN PRN Reason: Constipation Docusate Sodium (Colace) 100 mg PO BID VANESA Sodium Chloride (Nacl 0.9% 1000 Ml) 1,000 mls @ 42 mls/hr IV DIRECT VANESA Magnesium Hydroxide (Milk Of Magnesia) 30 ml PO Q4H PRN PRN Reason: Constipation Metoclopramide HCl (Reglan) 10 mg PO Q6H PRN PRN Reason: Nausea And Vomiting Ondansetron HCl (Zofran) 4 mg IV Q8H PRN PRN Reason: Nausea And Vomiting Review of Systems Neurological: weakness, tremors, other (facial droop) Exam - Constitutional Vitals: Temp Pulse Resp BP Pulse Ox 108 H 17 152/87 99 06/16/18 19:01 06/16/18 19:01 06/16/18 19:01 06/16/18 19:01 General appearance: Present: no acute distress - EENT Eyes: Present: PERRL ENT: hearing intact - Neck Neck: Present: normal ROM - Respiratory Respiratory effort: normal Respiratory: bilateral: CTA - Cardiovascular Rhythm: regular - Extremities Extremities: no ischemia, No edema Peripheral Pulses: within normal limits - Abdominal General gastrointestinal: Present: deferred, non-tender, non-distended Male genitourinary: Present: deferred - Rectal Rectal Exam: deferred - Integumentary Integumentary: Present: warm, dry - Musculoskeletal Musculoskeletal: right sided weakness (facial) - Neurologic Neurologic: moves all extremities Results - Labs CBC & Chem 7: 06/16/18 18:35 06/16/18 18:35 Labs: Laboratory Last Values WBC 8.6 K/mm3 (4.5-11.0) 06/16/18 18:35 RBC 5.47 M/mm3 (3.65-5.03) H 06/16/18 18:35 Hgb 15.2 gm/dl (11.8-15.2) 06/16/18 18:35 Hct 45.1 % (35.5-45.6) 06/16/18 18:35 MCV 83 fl (84-94) L 06/16/18 18:35 MCH 28 pg (28-32) 06/16/18 18:35 MCHC 34 % (32-34) 06/16/18 18:35 RDW 14.5 % (13.2-15.2) 06/16/18 18:35 Plt Count 326 K/mm3 (140-440) 06/16/18 18:35 Lymph % (Auto) 22.5 % (13.4-35.0) 06/16/18 18:35 Baker % (Auto) 5.7 % (0.0-7.3) 06/16/18 18:35 Eos % (Auto) 1.7 % (0.0-4.3) 06/16/18 18:35 Baso % (Auto) 0.9 % (0.0-1.8) 06/16/18 18:35 Lymph # 1.9 K/mm3 (1.2-5.4) 06/16/18 18:35 Baker # 0.5 K/mm3 (0.0-0.8) 06/16/18 18:35 Eos # 0.1 K/mm3 (0.0-0.4) 06/16/18 18:35 Baso # 0.1 K/mm3 (0.0-0.1) 06/16/18 18:35 Seg Neutrophils % 69.2 % (40.0-70.0) 06/16/18 18:35 Seg Neutrophils # 6.0 K/mm3 (1.8-7.7) 06/16/18 18:35 PT 12.2 Sec. (12.2-14.9) 06/16/18 18:35 INR 0.86 (0.87-1.13) L 06/16/18 18:35 APTT 34.2 Sec. (24.2-36.6) 06/16/18 18:35 Thrombin Time 15.8 Sec. (15.1-19.6) 06/16/18 18:35 Sodium 131 mmol/L (137-145) L 06/16/18 18:35 Potassium 4.2 mmol/L (3.6-5.0) 06/16/18 18:35 Chloride 97.7 mmol/L (98-107) L 06/16/18 18:35 Carbon Dioxide 18 mmol/L (22-30) L 06/16/18 18:35 Anion Gap 20 mmol/L 06/16/18 18:35 BUN 6 mg/dL (9-20) L 06/16/18 18:35 Creatinine 0.5 mg/dL (0.8-1.5) L 06/16/18 18:35 Estimated GFR > 60 ml/min 06/16/18 18:35 BUN/Creatinine Ratio 12 % 06/16/18 18:35 Glucose 320 mg/dL (75-100) H 06/16/18 18:35 POC Glucose 288 (70-105) H 06/16/18 18:37 Calcium 9.4 mg/dL (8.4-10.2) 06/16/18 18:35 Troponin T < 0.010 ng/mL (0.00-0.029) 06/16/18 18:35 Assessment and Plan Assessment and plan: 1. Acute TIA/R/o CVA 2. Left facial droop 3. HTN (BP stable) 4. HIV on HAART (Unknown CD4 count and viral load) 5. DM type 2 (uncontrolled) 6. H/o bone cancer s/p left mandible resection Plan: Admit to Med/tele foor acute TIA/R/o CVA Consult Neurologyfor evaluation Acute ischemic stroke protocol was initiated Bedside swallow study Neuro Check every 2 hours Review home meds Accu-Chek ACHS with insulin per sliding scale Pending MRI/MRA of the brain. neck Echo cardiogram pending PT/OT to evaluate and treat in the a.m. Case management for discipline Care discussed with patient and family, voiced understanding Patient's condition and plan of care D/W with Dr. Rome Advance Directives: Yes VTE prophylaxis?: Mechanical Plan of care discussed with patient/family: Yes
[2018-06-16] MEDS: ZOFRAN IV PRN ×2 (20:16→22:27)
--- NOTE | 2018-06-16 20:25 | XRay Report ---
PROCEDURE: XR CHEST 1V AP TECHNIQUE: Chest radiograph single view. HISTORY: neuro deficit COMPARISONS: None . FINDINGS: Heart: Normal. Mediastinum/Vessels: Normal. Lungs/Pleural space: Normal. Bony thorax: No acute osseous abnormality. Life support devices: None. IMPRESSION: No acute cardiopulmonary abnormality. This document is electronically signed by Jm Sumner MD., June 16 2018 08:23:29 PM ET
[2018-06-16] MEDS: NACL 0.9% 1000 ML 1,000 ML IV SCH (22:27)
[2018-06-16] MEDS: COLACE PO SCH (22:27)
[2018-06-16] MEDS: SODIUM CHLORIDE FLUSH SYRINGE 10 ML IV SCH (22:27)
[2018-06-17] MEDS: ZOFRAN IV PRN ×2 (05:09→12:07)
[2018-06-17 07:53] LABS: Basophils # (Auto) 0.1 K/mm3 (0.0-0.1); Basophils % (Auto) 0.6 % (0.0-1.8); Eosinophils % (Auto) 0.2 % (0.0-4.3); Hematocrit 45.2 % (35.5-45.6); Hemoglobin 15.3 gm/dl (11.8-15.2); Lymphocytes # (Auto) 1.9 K/mm3 (1.2-5.4); Lymphocytes % (Auto) 19.2 % (13.4-35.0); Mean Corpuscular HGB Conc 34 % (32-34); Mean Corpuscular Volume 83 fl (84-94); Monocytes # (Auto) 0.7 K/mm3 (0.0-0.8); Monocytes % (Auto) 6.8 % (0.0-7.3); Platelet Count 338 K/mm3 (140-440); Red Blood Count 5.47 M/mm3 (3.65-5.03); Red Cell Distribution Width 14.4 % (13.2-15.2)
[2018-06-17 08:00] LABS: BUN/Creatinine Ratio 13; Blood Urea Nitrogen 12 mg/dL (9-20); Calcium 9.3 mg/dL (8.4-10.2); Chol/HDL Ratio 4.09 %; HDL Cholesterol 33 mg/dL (40-59); Hemolysis Index 9; LDL Cholesterol,Direct 71 mg/dL (50-130)
[2018-06-17] MEDS: SODIUM CHLORIDE FLUSH SYRINGE 10 ML IV SCH ×2 (09:21→22:23)
[2018-06-17] MEDS ORDERED: APRESOLINE IV ONE (09:30)
[2018-06-17 09:57] LABS: Amphetamine Screen,Urine PRESUMPTIVE NEGATIVE; Benzodiazepines Screen,Urine PRESUMPTIVE NEGATIVE; Cannabinoid Screen,Urine PRESUMPTIVE NEGATIVE; Cocaine Screen,Urine PRESUMPTIVE NEGATIVE; Methadone Screen,Urine PRESUMPTIVE NEGATIVE; Opiate Screen,Urine PRESUMPTIVE NEGATIVE
[2018-06-17] MEDS ORDERED: ASPIRIN PR SCH (10:00)
[2018-06-17] MEDS ORDERED: MORPHINE IV ONE (12:00)
[2018-06-17] MEDS ORDERED: SOLU-Medrol IV ONE (12:09)
[2018-06-17] MEDS ORDERED: ATIVAN IV ONE (12:42)
--- NOTE | 2018-06-17 15:03 | Vascular Lab Report ---
PROCEDURE: VL CAROTID DUPLEX BILAT TECHNIQUE: Duplex Doppler ultrasound of the common, internal and external carotid arteries and the v ertebral arteries was performed bilaterally. Bliss scale imaging, velocity spectral waveform analysis, and color flow Doppler were employed. HISTORY: acute stroke COMPARISONS: None . Note: Measurement of carotid stenosis is based on flow velocity values that correlate with the [place] Symptomatic Carotid Endarterectomy Trial (NASCET) based stenosis criteria using the internal carotid artery diameter as the denominator for stenosis calculation. FINDINGS: RIGHT carotid artery: Velocities: ICA PSV: 70 cm/sec ICA End diastolic: 13 cm/sec CCA PSV: 240 cm/sec IC/CC ratio: 0.3 Plaque/color flow: Mild heterogeneous plaque without significant spectral broadening or abnormal col or flow . RIGHT vertebral artery: Antegrade systolic and diastolic flow LEFT carotid artery: Velocities: ICA PSV: 75 cm/sec ICA End diastolic: 24 cm/sec CCA PSV: 154 cm/sec IC/CC ratio: 0.5 Plaque/color flow: Mild heterogeneous plaque without significant spectral broadening or abnormal col or flow . LEFT vertebral artery: Antegrade systolic and diastolic flow IMPRESSION: 1. RIGHT carotid: No hemodynamically significant (less than 50 percent) internal carotid artery fabian nosis. 2. LEFT carotid: No hemodynamically significant (less than 50 percent) internal carotid artery sten osis. 3. Vertebral arteries: Bilaterally antegrade. 4. Elevated velocities in the proximal common carotid arteries may be related to underlying high card iac output which can be seen in hypertensive patients or athletes. Appearance on the grayscale images does not suggest focal stenosis. This document is electronically signed by Meagan Shanks., Jun 17 2018 03:01:13 PM ET
--- NOTE | 2018-06-17 15:38 | Magnetic Resonance Report ---
MRI BRAIN WITHOUT CONTRAST: 06/16/18 19:41:00 CLINICAL: TIA TECHNIQUE: Axial diffusion, T1, T2, gradient echo T2*, coronal and axial FLAIR and sagittal T1 sequences on a 1.5 [place] magnet. FINDINGS: Motion degrades the quality of the exam on several sequences. No restricted diffusion and no abnormal signal. No mass or mass effect. No hemorrhage, edema or extra-axial collection. No chronic microbleeds on the gradient echo sequence. Normal pituitary and optic chiasm. The brainstem and cerebellum are normal. Intact vascular flow voids. Normal sinuses. The orbits, and soft tissues are normal. Normal calvarium and skull base. IMPRESSION: Normal study.
--- NOTE | 2018-06-17 15:39 | Magnetic Resonance Report ---
MRA HEAD WITHOUT CONTRAST: 06/16/18 19:41:00 CLINICAL: TIA TECHNIQUE: Axial 3-D [id number] MR angiography of the [place] of [place] with review of axial source images. FINDINGS: Intact [place] of [place] with no aneurysm, stenosis or occlusion. Symmetric blood flow in the anterior, middle and posterior cerebral arteries. Normal basilar and vertebral arteries. The right vertebral artery is dominant. IMPRESSION: Normal study.
--- NOTE | 2018-06-17 15:43 | Magnetic Resonance Report ---
MRA NECK WITHOUT AND WITH CONTRAST: 06/17/18 CLINICAL: TIA. COMPARISON:None. TECHNIQUE: Axial 3-D [id number] MR angiography and coronal contrast MR angiography of the carotid and vertebral arteries with review of axial and coronal source images on a 1.5 [place] magnet. 15 cc of Multihance was injected intravenously for the contrast portion of the exam and consent was obtained prior to the administration of the contrast. FINDINGS: A fair quality exam with motion. The bilateral common and internal carotid arteries are intact. Bilateral vertebral arteries are intact. No stenoses or occlusions. Dominant right vertebral artery. IMPRESSION: Normal study with no stenosis and no occlusion.
[2018-06-17] MEDS: COLACE PO SCH ×2 (15:53→22:22)
[2018-06-17] MEDS ORDERED: D50W (25GM) Syringe IV PRN (17:08)
--- NOTE | 2018-06-17 17:10 | Progress Note ---
Assessment and Plan Assessment and plan: Patient is a 48-year-old male with PMHx of HTN, HIV on HAART, DM2 (uncontrolled), h/o bone cancer s/p left mandible resection (11 yrs ago), who presents to ER with complaint of left sided facial droop, right-sided weakness. Patient states that he went to take a nap, he was fine but when when he woke up he noticed the weakness and the facial droop. Pt and mother at the bedside report that he was hospitalized at the beginning of May for the same symptoms, he saw the neurologist and his symptoms gradually resolved. Pt also complaint of frontal headache, nausea and dry hives, he denies any dizziness, denies any visual changes, he denies extremities weakness, denies any recent illness, fever or chills. Pt had an MRI in the ER that was negative, neurology had recommended admission for his acute symptoms. 1. Acute TIA/R/o CVA 2. Left facial droop 3. HTN (BP stable) 4. HIV on HAART (Unknown CD4 count and viral load) 5. DM type 2 (uncontrolled) 6. H/o bone cancer s/p left mandible resection 7. Back pain Plan: continue supprotive care Consult Neurology for evaluation Acute ischemic stroke protocol was initiated Neuro Check every 2 hours Review home meds eval with urinalysis and possible xray if no improvement in pain Accu-Chek ACHS with insulin per sliding scale Pending MRI/MRA of the brain. neck Echo cardiogram pending PT/OT to evaluate and treat in the a.m. Case management for discipline Care discussed with patient and family, voiced understanding History Interval history: Patient seen and examined, no new complaints, states that drooling is normal since his surgery for jaw ca and reconstruction Hospitalist Physical - Physical exam Narrative exam: General appearance: Present: no acute distress - EENT Eyes: Present: PERRL ENT: hearing intact, mild oral depression on the left, but noted surgical changes - Neck Neck: Present: normal ROM - Respiratory Respiratory effort: normal Respiratory: bilateral: CTA - Cardiovascular Rhythm: regular - Extremities Extremities: no ischemia, No edema Peripheral Pulses: within normal limits - Abdominal General gastrointestinal: Present: deferred, non-tender, non-distended Male genitourinary: Present: deferred - Rectal Rectal Exam: deferred - Integumentary Integumentary: Present: warm, dry - Musculoskeletal Musculoskeletal: right sided weakness (facial). Paraspinal tenderness at the level of L5 - Neurologic Neurologic: moves all extremities - Constitutional Vitals: Temp Pulse Resp BP Pulse Ox 97.4 F L 124 H 18 130/86 87 06/17/18 16:03 06/17/18 16:03 06/17/18 16:03 06/17/18 16:03 06/17/18 16:03 General appearance: Present: no acute distress Results - Labs CBC & Chem 7: 06/17/18 06:54 06/17/18 06:54 Labs: Laboratory Last Values WBC 9.7 K/mm3 (4.5-11.0) 06/17/18 06:54 RBC 5.47 M/mm3 (3.65-5.03) H 06/17/18 06:54 Hgb 15.3 gm/dl (11.8-15.2) H 06/17/18 06:54 Hct 45.2 % (35.5-45.6) 06/17/18 06:54 MCV 83 fl (84-94) L 06/17/18 06:54 MCH 28 pg (28-32) 06/17/18 06:54 MCHC 34 % (32-34) 06/17/18 06:54 RDW 14.4 % (13.2-15.2) 06/17/18 06:54 Plt Count 338 K/mm3 (140-440) 06/17/18 06:54 Lymph % (Auto) 19.2 % (13.4-35.0) 06/17/18 06:54 Russell % (Auto) 6.8 % (0.0-7.3) 06/17/18 06:54 Eos % (Auto) 0.2 % (0.0-4.3) 06/17/18 06:54 Baso % (Auto) 0.6 % (0.0-1.8) 06/17/18 06:54 Lymph # 1.9 K/mm3 (1.2-5.4) 06/17/18 06:54 Russell # 0.7 K/mm3 (0.0-0.8) 06/17/18 06:54 Eos # 0.0 K/mm3 (0.0-0.4) 06/17/18 06:54 Baso # 0.1 K/mm3 (0.0-0.1) 06/17/18 06:54 Seg Neutrophils % 73.2 % (40.0-70.0) H 06/17/18 06:54 Seg Neutrophils # 7.1 K/mm3 (1.8-7.7) 06/17/18 06:54 PT 12.2 Sec. (12.2-14.9) 06/16/18 18:35 INR 0.86 (0.87-1.13) L 06/16/18 18:35 APTT 34.2 Sec. (24.2-36.6) 06/16/18 18:35 Thrombin Time 15.8 Sec. (15.1-19.6) 06/16/18 18:35 Sodium 139 mmol/L (137-145) D 06/17/18 06:54 Potassium 3.9 mmol/L (3.6-5.0) 06/17/18 06:54 Chloride 98.7 mmol/L (98-107) 06/17/18 06:54 Carbon Dioxide 24 mmol/L (22-30) 06/17/18 06:54 Anion Gap 20 mmol/L 06/17/18 06:54 BUN 12 mg/dL (9-20) 06/17/18 06:54 Creatinine 0.9 mg/dL (0.8-1.5) D 06/17/18 06:54 Estimated GFR > 60 ml/min 06/17/18 06:54 BUN/Creatinine Ratio 13 % 06/17/18 06:54 Glucose 360 mg/dL (75-100) H 06/17/18 06:54 POC Glucose 352 (70-105) H 06/17/18 16:28 Calcium 9.3 mg/dL (8.4-10.2) 06/17/18 06:54 Troponin T < 0.010 ng/mL (0.00-0.029) 06/17/18 06:54 Triglycerides 238 mg/dL (2-149) H 06/17/18 06:54 Cholesterol 135 mg/dL (50-199) 06/17/18 06:54 LDL Cholesterol Direct 71 mg/dL (50-130) 06/17/18 06:54 HDL Cholesterol 33 mg/dL (40-59) L 06/17/18 06:54 Cholesterol/HDL Ratio 4.09 % 06/17/18 06:54 Urine Opiates Screen Presumptive negative 06/17/18 Unknown Urine Methadone Screen Presumptive negative 06/17/18 Unknown Ur Barbiturates Screen Presumptive negative 06/17/18 Unknown Ur Phencyclidine Scrn Presumptive negative 06/17/18 Unknown Ur Amphetamines Screen Presumptive negative 06/17/18 Unknown U Benzodiazepines Scrn Presumptive negative 06/17/18 Unknown Urine Cocaine Screen Presumptive negative 06/17/18 Unknown U Marijuana (THC) Screen Presumptive negative 06/17/18 Unknown Drugs of Abuse Note Disclamer 06/17/18 Unknown Active Medications - Current Medications Current Medications: Generic Name Dose Route Start Last Admin Trade Name Freq PRN Reason Stop Dose Admin Acetaminophen 650 mg 06/16/18 19:40 Tylenol PO Q4H PRN Pain MILD(1-3)/Fever >100.5/MARIA Aspirin 300 mg 06/17/18 10:00 06/17/18 15:53 Aspirin MD Not Given QDAY [facility] Atorvastatin Calcium 40 mg 06/16/18 22:00 06/16/18 22:27 Lipitor PO Not Given QHS VANESA Bisacodyl 10 mg 06/16/18 19:40 Dulcolax MD QDAY PRN Constipation Docusate Sodium 100 mg 06/16/18 22:00 06/17/18 15:53 Colace PO Not Given BID [facility] Sodium Chloride 1,000 mls @ 42 mls/hr 06/16/18 20:00 06/16/18 22:27 Nacl 0.9% 1000 Ml IV 42 mls/hr DIRECT VANESA Administration Magnesium Hydroxide 30 ml 06/16/18 19:40 Milk Of Magnesia PO Q4H PRN Constipation Metoclopramide HCl 10 mg 06/16/18 19:40 Reglan PO Q6H PRN Nausea And Vomiting Ondansetron HCl 4 mg 06/16/18 19:40 06/17/18 12:07 Zofran IV 4 mg Q8H PRN Administration Nausea And Vomiting Promethazine HCl 25 mg 06/16/18 19:40 Phenergan MD Q6H PRN Nausea And Vomiting Sodium Chloride 10 ml 06/16/18 22:00 06/17/18 09:21 Sodium Chloride Flush Syringe 10 Ml IV 10 ml BID VANESA Administration Sodium Chloride 10 ml 06/16/18 19:40 Sodium Chloride Flush Syringe 10 Ml IV PRN PRN LINE FLUSH Nutrition/Malnutrition Assess - Dietary Evaluation Nutrition/Malnutrition Findings: Nutrition Notes Start: 06/17/18 08:57 Freq: Status: Active Protocol: Document 06/17/18 08:57 TW (Rec: 06/17/18 09:12 TW [id number]) Co-Sign 06/17/18 08:57 LP Nutrition Notes Need for Assessment generated from: MD Order,Education Initial or Follow up Assessment Current Diagnosis Diabetes,Hypertension,Stroke Other Pertinent Diagnosis HIV Current Diet NPO Labs/Tests B Pertinent Medications Lipitor Height 5 ft 10 in Weight 107.048 kg [place] Body Weight (kg) 75.45 BMI 33.8 Weight Status Obese Subjective/Other Information MD consult for diet education. Pt did not want education, but stated he would look over the handouts provided on his own time. Provided stroke and DM education. Burn Absent Trauma Absent #1 Nutrition Diagnosis Food and nutrition-related knowledge deficit Etiology lack of prior knowledge As Evidenced by Signs and Symptoms B Is patient on ventilator? No Is Patient Ambulatory and/or Out of Bed Yes REE-([facility]-ambulatory/OOB) [ 2543.749 [id number]] Kcal/Kg value to use for calculation 20 Approximate Energy Requirements Using 2141 kcal/Kg Calculation Used for Recommendations Kcal/kg Additional Notes Protein needs (AdjBW: 91 kg) ( 0.8-1.0 g/kg) (73-91 g/day) Fluid needs: 1ml/kcal Nutrition Intervention Change Diet Order: Advance when medically feasible Teaching Recipient Patient Learning Readiness Poor Teaching Methods Handout Response to Teaching Reinforcement needed Education Handouts Provided "Carbohydrate Counting for People with Diabetes" "Stroke Nutrition Therapy" Barriers to Learning Motivation RD phone number provided Yes Patient aware of follow up options Yes Goal #1 Adhere to diet recommendations Anticipated Discharge Needs: Consistent CHO diet Follow-Up By: 06/23/18 Additional Comments F/U for BG level, diet advancement and education reinforcement
[2018-06-17] MEDS: MORPHINE IV PRN ×2 (18:39→23:37)
--- NOTE | 2018-06-17 18:56 | Consultation ---
History of Present Illness Consult date: 06/17/18 Chief complaint: focal neuro deficits History of present illness: This is a 48 YO m, HIV +(cd 4, viral load and medical compliance unknown) who presented to the ED with left facial droop and weakness on the right. Pt is sleeping and aarouses easily but not giving any history. Says symptoms are still there but not noted on exam. Past History Past Medical History: diabetes, HIV/AIDS, hypertension, other (bone cancer) Past Surgical History: Other (none noted) Social history: lives with family Family history: hypertension Medications and Allergies Allergies Allergy/AdvReac Type Severity Reaction Status Date / Time No Known Allergies Allergy Verified 07/23/13 06:34 Home Medications Medication Instructions Recorded Confirmed Last Taken Type Efavirenz/Emtricit/Tenofovr Df 1 each PO QDAY 07/23/13 06/17/18 Unknown History [Atripla Tablet] Aspirin [Aspirin TAB] 325 mg PO QDAY #30 tablet 05/19/18 06/17/18 Unknown Rx AtorvaSTATin [Lipitor] 40 mg PO QHS #30 tablet 05/19/18 06/17/18 Unknown Rx Insulin Glargine [Lantus VIAL] 20 units SUB-Q QHS #30 units 05/19/18 06/17/18 Unknown Rx clonazePAM [KlonoPIN] 0.5 mg PO BID PRN #30 tablet 05/19/18 06/17/18 Unknown Rx Active Meds: Active Medications Acetaminophen (Tylenol) 650 mg PO Q4H PRN PRN Reason: Pain MILD(1-3)/Fever >100.5/MARIA Aspirin (Aspirin) 325 mg PO QDAY [facility] Atorvastatin Calcium (Lipitor) 40 mg PO QHS [facility] Last Admin: 06/16/18 22:27 Dose: Not Given Documented by: Atorvastatin Calcium (Lipitor) 40 mg PO QHS [facility] Bisacodyl (Dulcolax) 10 mg DE QDAY PRN PRN Reason: Constipation Clonazepam (Klonopin) 0.5 mg PO BID PRN PRN Reason: Anxiety Dextrose (D50w (25gm) Syringe) 50 ml IV PRN PRN PRN Reason: Hypoglycemia Docusate Sodium (Colace) 100 mg PO BID [facility] Last Admin: 06/17/18 15:53 Dose: Not Given Documented by: Efavirenz (Sustiva) 600 mg PO QDAY [facility] Emtricitabine (Emtriva) 200 mg PO QDAY [facility] Sodium Chloride (Nacl 0.9% 1000 Ml) 1,000 mls @ 42 mls/hr IV DIRECT VANESA Last Admin: 06/16/18 22:27 Dose: 42 mls/hr Documented by: Insulin Glargine (Lantus) 20 units SUB-Q QHS [facility] Insulin Human Lispro (Humalog) 0 unit SUB-Q ACHS [facility]; Protocol Insulin Human Lispro (Humalog) 0 unit SUB-Q ONCE ONE; Protocol Stop: 06/17/18 19:01 Last Admin: 06/17/18 18:38 Dose: 10 unit Documented by: Magnesium Hydroxide (Milk Of Magnesia) 30 ml PO Q4H PRN PRN Reason: Constipation Metoclopramide HCl (Reglan) 10 mg PO Q6H PRN PRN Reason: Nausea And Vomiting Morphine Sulfate (Morphine) 2 mg IV Q4H PRN PRN Reason: Pain, Moderate (4-6) Last Admin: 06/17/18 18:39 Dose: 2 mg Documented by: Ondansetron HCl (Zofran) 4 mg IV Q8H PRN PRN Reason: Nausea And Vomiting Last Admin: 06/17/18 12:07 Dose: 4 mg Documented by: Promethazine HCl (Phenergan) 25 mg DE Q6H PRN PRN Reason: Nausea And Vomiting Sodium Chloride (Sodium Chloride Flush Syringe 10 Ml) 10 ml IV BID [facility] Last Admin: 06/17/18 09:21 Dose: 10 ml Documented by: Sodium Chloride (Sodium Chloride Flush Syringe 10 Ml) 10 ml IV PRN PRN PRN Reason: LINE FLUSH Tenofovir Disoproxil Fumarate (Viread) 300 mg PO QDAY [facility] Review of Systems ROS unobtainable: due to mental status Physical Examination - Vital Signs Vital Signs: Vital Signs Pulse 116 H 06/16/18 18:44 - Constitutional General appearance: comfortable - EENT EENT: Present: PERRL, mucous membranes moist - Respiratory Respiratory: Present: lungs clear - Cardiovascular Cardiovascular: Present: regular rate - Gastrointestinal Gastrointestinal: Present: normoactive bowel sounds - Integumentary Integumentary: Present: normal - Neurologic Cranial nerve examination: PERRL, EOMI, face symmetric, tongue midline Detailed motor examination: grossly full strength in Results - Laboratory Findings CBC and BMP: 06/17/18 06:54 06/17/18 06:54 Abnormal Lab Findings: Abnormal Labs 06/16/18 06/16/18 06/16/18 18:35 18:35 18:35 RBC 5.47 H Hgb MCV 83 L Seg Neutrophils % INR 0.86 L Sodium 131 L Chloride 97.7 L Carbon Dioxide 18 L BUN 6 L Creatinine 0.5 L Glucose 320 H POC Glucose Triglycerides HDL Cholesterol 06/16/18 06/17/18 06/17/18 18:37 06:54 06:54 RBC 5.47 H Hgb 15.3 H MCV 83 L Seg Neutrophils % 73.2 H INR Sodium Chloride Carbon Dioxide BUN Creatinine Glucose 360 H POC Glucose 288 H Triglycerides 238 H HDL Cholesterol 33 L 06/17/18 16:28 RBC Hgb MCV Seg Neutrophils % INR Sodium Chloride Carbon Dioxide BUN Creatinine Glucose POC Glucose 352 H Triglycerides HDL Cholesterol - Diagnostic Findings Additional findings: MRI Brain no acute ischemia- done without contrast Assessment and Plan This is a 48 YO M with transient neuro symptoms per history, ? TIA REcommend: Consider MRI Brain with camelia in pt with HIV EEG if pt has some associated confusion, did not wake up much for me stroke work up- carotids, MRA, Pt.OT.ST aspirin and statin for LDL > 70 VTE prophylaxis Continue care for all medical issues as you are doing
[2018-06-17] MEDS ORDERED: HumaLOG SUB-Q ONE (19:00)
[2018-06-17 20:02] LABS: Bilirubin,Urine NEG (Negative); Blood,Urine NEG (Negative); Color,Urine Yellow (Yellow); Urobilinogen,Urine < 2.0 mg/dL (<2.0)
[2018-06-17] MEDS: HumaLOG SUB-Q SCH (22:23)
[2018-06-17] MEDS: LANTUS SUB-Q SCH (22:27)
[2018-06-17] MEDS: APRESOLINE IV PRN (22:41)
[2018-06-17] MEDS: NACL 0.9% 1000 ML 1,000 ML IV SCH (22:42)
[2018-06-17] MEDS ORDERED: BENADRYL PO PRN (23:25)
[2018-06-18] MEDS ORDERED: CATAPRES PO PRN (00:25)
[2018-06-18] MEDS: HumaLOG SUB-Q SCH ×4 (08:36→23:06)
[2018-06-18] MEDS: ZOFRAN IV PRN (08:49)
[2018-06-18] MEDS ORDERED: [UNRECOGNIZED DRUG - OTHER] PO SCH (10:00)
[2018-06-18] MEDS ORDERED: MORPHINE IV PRN (10:32)
[2018-06-18] MEDS ORDERED: ATIVAN IV NR (11:15)
[2018-06-18] MEDS: ZESTRIL PO SCH (12:04)
[2018-06-18] MEDS: COREG PO SCH ×2 (12:04→23:04)
--- NOTE | 2018-06-18 14:00 | XRay Report ---
Right and left sacroiliac joints: History: Low back pain. Findings: No significant articular or bony abnormality noted defect in the left sacroiliac joints. No soft tissue calcification or adjacent swelling or evidence of fracture. Impression: No significant abnormality the sacroiliac joints
--- NOTE | 2018-06-18 14:08 | Magnetic Resonance Report ---
MRI BRAIN WITH CONTRAST: 06/18/18 07:34:00 CLINICAL: HIV and encephalopathy. TECHNIQUE: Coronal and axial postcontrast T1 sequences on a 1.5 [place] magnet. 18.0 cc of Multihance was injected intravenously and consent was obtained prior to the administration of the contrast. FINDINGS: No abnormal signal. No mass or enhancing lesion. No hemorrhage, edema or extra-axial collection. Normal pituitary and optic chiasm. The brainstem and cerebellum are normal. The orbits, sinuses and soft tissues are normal. Normal calvarium and skull base. IMPRESSION: Normal study.
--- NOTE | 2018-06-18 14:58 | Progress Note ---
Assessment and Plan Assessment and plan: Patient is a 48-year-old male with PMHx of HTN, HIV on HAART, DM2 (uncontrolled), h/o bone cancer s/p left mandible resection (11 yrs ago), who presents to ER with complaint of left sided facial droop, right-sided weakness. Patient states that he went to take a nap, he was fine but when when he woke up he noticed the weakness and the facial droop. Pt and mother at the bedside report that he was hospitalized at the beginning of May for the same symptoms, he saw the neurologist and his symptoms gradually resolved. Pt also complaint of frontal headache, nausea and dry hives, he denies any dizziness, denies any visual changes, he denies extremities weakness, denies any recent illness, fever or chills. Pt had an MRI in the ER that was negative, neurology had recommended admission for his acute symptoms. 1. Acute TIA 3. HTN (BP stable) 4. HIV on HAART (Unknown CD4 count and viral load) 5. DM type 2 (uncontrolled) 6. H/o bone cancer s/p left mandible resection 7. Back pain 8. Peritoneal irritation Plan: continue supportive care Neurology input noted Continue ASA.STATIN Acute ischemic stroke protocol was initiated MRI/MRA unremarkable Will down grade to [facility] Pain control Obtain CT abdomen and pelvis and also L[place] spine Review home meds eval with urinalysis and possible xray if no improvement in pain Accu-Check ACHS with insulin per sliding scale Echo cardiogram pending PT/OT to evaluate and treat in the a.m. Case management for discipline Care discussed with patient and family, voiced understanding History Interval history: Patient seen and examined, patient reports abdominal pain with associated nausea and vomiting is been ongoing since admission before admission yesterday. Per the nursing staff blood pressure still elevated. She denies any radiation to his lower extremity. Hospitalist Physical - Physical exam Narrative exam: General appearance: Present: no acute distress - EENT Eyes: Present: PERRL ENT: hearing intact, mild oral depression on the left, but noted surgical changes - Neck Neck: Present: normal ROM - Respiratory Respiratory effort: normal Respiratory: bilateral: CTA - Cardiovascular Rhythm: regular - Extremities Extremities: no ischemia, No edema Peripheral Pulses: within normal limits - Abdominal General gastrointestinal: Present: tender, right lower quadrant Male genitourinary: Present: deferred - Rectal Rectal Exam: deferred - Integumentary Integumentary: Present: warm, dry - Musculoskeletal Musculoskeletal: right sided weakness (facial). Paraspinal tenderness at the level of L5 - Neurologic Neurologic: moves all extremities - Constitutional Vitals: Temp Pulse Resp BP Pulse Ox 98.2 F 104 H 18 175/106 94 06/18/18 11:40 06/18/18 11:40 06/18/18 11:40 06/18/18 11:40 06/18/18 14:48 General appearance: Present: no acute distress Results - Labs CBC & Chem 7: 06/17/18 06:54 06/17/18 06:54 Labs: Laboratory Last Values WBC 9.7 K/mm3 (4.5-11.0) 06/17/18 06:54 RBC 5.47 M/mm3 (3.65-5.03) H 06/17/18 06:54 Hgb 15.3 gm/dl (11.8-15.2) H 06/17/18 06:54 Hct 45.2 % (35.5-45.6) 06/17/18 06:54 MCV 83 fl (84-94) L 06/17/18 06:54 MCH 28 pg (28-32) 06/17/18 06:54 MCHC 34 % (32-34) 06/17/18 06:54 RDW 14.4 % (13.2-15.2) 06/17/18 06:54 Plt Count 338 K/mm3 (140-440) 06/17/18 06:54 Lymph % (Auto) 19.2 % (13.4-35.0) 06/17/18 06:54 [place] % (Auto) 6.8 % (0.0-7.3) 06/17/18 06:54 Eos % (Auto) 0.2 % (0.0-4.3) 06/17/18 06:54 Baso % (Auto) 0.6 % (0.0-1.8) 06/17/18 06:54 Lymph # 1.9 K/mm3 (1.2-5.4) 06/17/18 06:54 [place] # 0.7 K/mm3 (0.0-0.8) 06/17/18 06:54 Eos # 0.0 K/mm3 (0.0-0.4) 06/17/18 06:54 Baso # 0.1 K/mm3 (0.0-0.1) 06/17/18 06:54 Seg Neutrophils % 73.2 % (40.0-70.0) H 06/17/18 06:54 Seg Neutrophils # 7.1 K/mm3 (1.8-7.7) 06/17/18 06:54 PT 12.2 Sec. (12.2-14.9) 06/16/18 18:35 INR 0.86 (0.87-1.13) L 06/16/18 18:35 APTT 34.2 Sec. (24.2-36.6) 06/16/18 18:35 Thrombin Time 15.8 Sec. (15.1-19.6) 06/16/18 18:35 Sodium 139 mmol/L (137-145) D 06/17/18 06:54 Potassium 3.9 mmol/L (3.6-5.0) 06/17/18 06:54 Chloride 98.7 mmol/L (98-107) 06/17/18 06:54 Carbon Dioxide 24 mmol/L (22-30) 06/17/18 06:54 Anion Gap 20 mmol/L 06/17/18 06:54 BUN 12 mg/dL (9-20) 06/17/18 06:54 Creatinine 0.9 mg/dL (0.8-1.5) D 06/17/18 06:54 Estimated GFR > 60 ml/min 06/17/18 06:54 BUN/Creatinine Ratio 13 % 06/17/18 06:54 Glucose 360 mg/dL (75-100) H 06/17/18 06:54 POC Glucose 266 (70-105) H 06/18/18 11:46 Hemoglobin A1c 12.6 % (4-6) H 06/17/18 20:15 Calcium 9.3 mg/dL (8.4-10.2) 06/17/18 06:54 Troponin T < 0.010 ng/mL (0.00-0.029) 06/17/18 06:54 Triglycerides 238 mg/dL (2-149) H 06/17/18 06:54 Cholesterol 135 mg/dL (50-199) 06/17/18 06:54 LDL Cholesterol Direct 71 mg/dL (50-130) 06/17/18 06:54 HDL Cholesterol 33 mg/dL (40-59) L 06/17/18 06:54 Cholesterol/HDL Ratio 4.09 % 06/17/18 06:54 Urine Color Yellow (Yellow) 06/17/18 19:30 Urine Turbidity Slightly-cloudy (Clear) 06/17/18 19:30 Urine pH 5.0 (5.0-7.0) 06/17/18 19:30 Ur Specific [place] 1.020 (1.003-1.030) 06/17/18 19:30 Urine Protein 30 mg/dl mg/dL (Negative) 06/17/18 19:30 Urine Glucose (UA) >=500 mg/dL (Negative) 06/17/18 19:30 Urine Ketones 20 mg/dL (Negative) 06/17/18 19:30 Urine Blood Neg (Negative) 06/17/18 19:30 Urine Nitrite Neg (Negative) 06/17/18 19:30 Urine Bilirubin Neg (Negative) 06/17/18 19:30 Urine Urobilinogen < 2.0 mg/dL (<2.0) 06/17/18 19:30 Ur Leukocyte Esterase Neg (Negative) 06/17/18 19:30 Urine Opiates Screen Presumptive negative 06/17/18 Unknown Urine Methadone Screen Presumptive negative 06/17/18 Unknown Ur Barbiturates Screen Presumptive negative 06/17/18 Unknown Ur Phencyclidine Scrn Presumptive negative 06/17/18 Unknown Ur Amphetamines Screen Presumptive negative 06/17/18 Unknown U Benzodiazepines Scrn Presumptive negative 06/17/18 Unknown Urine Cocaine Screen Presumptive negative 06/17/18 Unknown U Marijuana (THC) Screen Presumptive negative 06/17/18 Unknown Drugs of Abuse Note Disclamer 06/17/18 Unknown Active Medications - Current Medications Current Medications: Generic Name Dose Route Start Last Admin Trade Name Freq PRN Reason Stop Dose Admin Acetaminophen 650 mg 06/16/18 19:40 Tylenol PO Q4H PRN Pain MILD(1-3)/Fever >100.5/MARIA Aspirin 325 mg 06/18/18 10:00 Aspirin PO QDAY VANESA Atorvastatin Calcium 40 mg 06/16/18 22:00 06/17/18 22:22 Lipitor PO 40 mg QHS VANESA Administration Bisacodyl 10 mg 06/16/18 19:40 Dulcolax NE QDAY PRN Constipation Carvedilol 12.5 mg 06/18/18 10:00 06/18/18 12:04 Coreg PO 12.5 mg BID VANESA Administration Clonazepam 0.5 mg 06/17/18 17:08 06/17/18 22:22 Klonopin PO 0.5 mg BID PRN Administration Anxiety Dextrose 50 ml 06/17/18 17:08 D50w (25gm) Syringe IV PRN PRN Hypoglycemia Diphenhydramine HCl 25 mg 06/17/18 23:25 06/17/18 23:38 Benadryl PO 25 mg QHS PRN Administration Sleep Docusate Sodium 100 mg 06/16/18 22:00 06/17/18 22:22 Colace PO 100 mg BID VANESA Administration Efavirenz 600 mg 06/18/18 10:00 Sustiva PO QDAY VANESA Emtricitabine 200 mg 06/18/18 10:00 Emtriva PO QDAY VANESA Hydralazine HCl 10 mg 06/17/18 21:15 06/17/18 22:41 Apresoline IV 10 mg Q4HR PRN Administration Blood Pressure Sodium Chloride 1,000 mls @ 42 mls/hr 06/16/18 20:00 06/17/18 22:42 Nacl 0.9% 1000 Ml IV 42 mls/hr DIRECT VANESA Administration Insulin Glargine 20 units 06/17/18 22:00 06/17/18 22:27 Lantus SUB-Q 20 units QHS VANESA Administration Insulin Human Lispro 0 unit 06/17/18 22:00 06/18/18 08:36 Humalog SUB-Q 6 unit ACHS VANESA Administration Protocol Lisinopril 20 mg 06/18/18 10:00 06/18/18 12:04 Zestril PO 20 mg QDAY VANESA Administration Lorazepam 2 mg 06/18/18 11:15 06/18/18 12:25 Ativan IV 06/18/18 23:00 2 mg PIPE SUPERVISOR NR Administration Magnesium Hydroxide 30 ml 06/16/18 19:40 Milk Of Magnesia PO Q4H PRN Constipation Metoclopramide HCl 10 mg 06/16/18 19:40 Reglan PO Q6H PRN Nausea And Vomiting Morphine Sulfate 2 mg 06/18/18 10:32 06/18/18 11:24 Morphine IV 2 mg Q4H PRN Administration Pain, Moderate (4-6) Ondansetron HCl 4 mg 06/16/18 19:40 06/18/18 08:49 Zofran IV 4 mg Q8H PRN Administration Nausea And Vomiting Oxycodone/Acetaminophen 1 tab 06/18/18 08:00 Percocet 5/325 PO Q6H PRN Pain, Moderate (4-6) Promethazine HCl 25 mg 06/16/18 19:40 Phenergan NE Q6H PRN Nausea And Vomiting Sodium Chloride 10 ml 06/16/18 22:00 06/17/18 22:23 Sodium Chloride Flush Syringe 10 Ml IV 10 ml BID VANESA Administration Sodium Chloride 10 ml 06/16/18 19:40 Sodium Chloride Flush Syringe 10 Ml IV PRN PRN LINE FLUSH Tenofovir Disoproxil Fumarate 300 mg 06/18/18 10:00 Viread PO QDAY VANESA Nutrition/Malnutrition Assess - Dietary Evaluation Nutrition/Malnutrition Findings: Nutrition Notes Start: 06/17/18 08:57 Freq: Status: Active Protocol: Document 06/17/18 08:57 TW (Rec: 06/17/18 09:12 TW [id number]) Co-Sign 06/17/18 08:57 LP Nutrition Notes Need for Assessment generated from: MD Order,Education Initial or Follow up Assessment Current Diagnosis Diabetes,Hypertension,Stroke Other Pertinent Diagnosis HIV Current Diet NPO Labs/Tests B Pertinent Medications Lipitor Height 5 ft 10 in Weight 107.048 kg [place] Body Weight (kg) 75.45 BMI 33.8 Weight Status Obese Subjective/Other Information MD consult for diet education. Pt did not want education, but stated he would look over the handouts provided on his own time. Provided stroke and DM education. Burn Absent Trauma Absent #1 Nutrition Diagnosis Food and nutrition-related knowledge deficit Etiology lack of prior knowledge As Evidenced by Signs and Symptoms B Is patient on ventilator? No Is Patient Ambulatory and/or Out of Bed Yes REE-([facility]-ambulatory/OOB) [ 6073.749 NUTR.MSJOOB] Kcal/Kg value to use for calculation 20 Approximate Energy Requirements Using 2141 kcal/Kg Calculation Used for Recommendations Kcal/kg Additional Notes Protein needs (AdjBW: 91 kg) ( 0.8-1.0 g/kg) (73-91 g/day) Fluid needs: 1ml/kcal Nutrition Intervention Change Diet Order: Advance when medically feasible Teaching Recipient Patient Learning Readiness Poor Teaching Methods Handout Response to Teaching Reinforcement needed Education Handouts Provided "Carbohydrate Counting for People with Diabetes" "Stroke Nutrition Therapy" Barriers to Learning Motivation RD phone number provided Yes Patient aware of follow up options Yes Goal #1 Adhere to diet recommendations Anticipated Discharge Needs: Consistent CHO diet Follow-Up By: 06/23/18 Additional Comments F/U for BG level, diet advancement and education reinforcement
[2018-06-18] MEDS: ASPIRIN PO SCH (15:12)
[2018-06-18] MEDS: COLACE PO SCH ×2 (15:12→23:04)
[2018-06-18] MEDS: VIREAD PO SCH (15:12)
[2018-06-18] MEDS: APRESOLINE PO SCH ×2 (15:13→23:05)
[2018-06-18] MEDS: SODIUM CHLORIDE FLUSH SYRINGE 10 ML IV SCH ×2 (15:13→23:06)
[2018-06-18] MEDS: EMTRIVA PO SCH (15:13)
[2018-06-18] MEDS: SUSTIVA PO SCH (15:20)
[2018-06-18] MEDS: NACL 0.9% 1000 ML 1,000 ML IV SCH (19:11)
--- NOTE | 2018-06-18 20:07 | Cat Scan Report ---
PROCEDURE: CT lumbar spine without contrast. TECHNIQUE: Computerized axial tomography of the lumbar spine was performed from T12 to the sacrum wi thout contrast material. CT DOSE LENGTH PRODUCT: 1071 mGycm HISTORY: Low back pain. COMPARISONS: None. FINDINGS: The lumbar vertebrae have normal height and alignment. There are no fractures. There is no spondyloly sis. There is no spondylolisthesis. The disc spaces are well-maintained. There are no definite disc p rotrusions, although this is better evaluated by MRI scanning. The spinal canal is widely patent. The posterior elements appear intact. The facet joints appear satisfactory. The paravertebral soft tissu es are unremarkable. IMPRESSION: No significant abnormality. This document is electronically signed by Sam Laboy MD., Jun 18 2018 08:05:56 PM ET
--- NOTE | 2018-06-18 20:22 | Cat Scan Report ---
PROCEDURE: CT abdomen and pelvis with contrast. TECHNIQUE: Computerized axial tomography of the abdomen and pelvis was performed after the IV inject ion of iodinated nonionic contrast. CT DOSE LENGTH PRODUCT: 4125.3 mGycm HISTORY: Intractable nausea and vomiting. COMPARISONS: None. FINDINGS: The lung bases are clear. There are no pleural effusions. The heart size is normal. The liver and bundy creas appear normal. There is a small focal mass of diminished attenuation within the spleen. This me asures 1.7 cm in diameter. It probably represents a benign lesion such as a cavernous hemangioma. The exact etiology is unknown however. The gallbladder is present. There may be gallstones. There is no biliary dilatation. The adrenal glands are not enlarged. Both kidneys appear normal in size and confi guration. The abdominal aorta has a normal caliber. There is no retroperitoneal adenopathy. The gastr ointestinal tract is unremarkable. A normal appendix is visible. The bladder, seminal vesicles and pr ostate appear normal. The regional skeleton appears intact. There is a small right-sided ventral wall hernia containing a loop of small bowel. This is located superior to the umbilicus. There are no sig ns of intestinal obstruction. There is also a small ventral wall hernia in the left epigastric area. This contains mesenteric fat. IMPRESSION: Small indeterminate mass within the spleen. 2 small ventral wall hernias as described. P ossible cholelithiasis. This document is electronically signed by Sam Laboy MD., Jun 18 2018 08:20:19 PM ET
[2018-06-18] MEDS: PERCOCET 5/325 PO PRN (23:09)
[2018-06-19] MEDS: LANTUS SUB-Q SCH (00:25)
[2018-06-19] MEDS: APRESOLINE PO SCH ×2 (06:28→14:48)
[2018-06-19] MEDS ORDERED: HumuLIN R SUB-Q ONE (08:15)
[2018-06-19] MEDS: HumaLOG SUB-Q SCH ×3 (08:39→17:07)
[2018-06-19 11:35] LABS: Alanine Aminotransferase 19 units/L (7-56); Albumin 3.6 g/dL (3.9-5)
[2018-06-19 11:39] LABS: Bilirubin,Direct < 0.2 mg/dL (0-0.2)
[2018-06-19] MEDS ORDERED: KINEVAC IV ONE ×2 (12:07→12:57)
[2018-06-19] MEDS: COREG PO SCH (13:53)
[2018-06-19] MEDS: ZESTRIL PO SCH (13:54)
[2018-06-19] MEDS: ASPIRIN PO SCH (13:54)
[2018-06-19] MEDS: COLACE PO SCH (13:55)
[2018-06-19] MEDS: SUSTIVA PO SCH (13:55)
[2018-06-19] MEDS: EMTRIVA PO SCH (13:55)
[2018-06-19] MEDS: SODIUM CHLORIDE FLUSH SYRINGE 10 ML IV SCH (13:56)
[2018-06-19] MEDS: VIREAD PO SCH (13:57)
[2018-06-19] MEDS: PERCOCET 5/325 PO PRN (14:48)
--- NOTE | 2018-06-19 15:22 | Nuclear Medicine Report ---
NUCLEAR MEDICINE HEPATOBILIARY SCAN: 06/19/18 07:52:00 CLINICAL: Intractable nausea and vomiting. TECHNIQUE: mCi technetium 99m Choletec was injected intravenously. Serial images were obtained up to one hour. At one hour, 1.89 mcg of Kinevac was injected intravenously by slow infusion and a gallbladder ejection fraction was calculated. FINDINGS: Normal activity in the liver, bile ducts and small bowel. Normal gallbladder activity is apparent at 10 minutes . However, the index symptoms were reproduced with the Kinevac infusion and the gallbladder ejection fraction is grossly abnormal at 7% measured over 29 minutes. IMPRESSION: 1. No evidence of acute cholecystitis. 2. Abnormal gallbladder function as indicated by the grossly abnormal gallbladder ejection fraction. 3. Pain with CCK injection may or may not be clinically significant.
--- NOTE | 2018-06-19 15:43 | Discharge Summary ---
Providers - Providers Date of Admission: 06/16/18 19:41 Attending physician: AI JONES MD 06/16/18 19:41 Consult to Case Management [CONS] Routine Services Needed at Discharge: Physical Therapy Occupational Therapy Notified:: case management Consult to Dietitian/Nutrition [CONS] Routine Physician Instructions: Reason For Exam: Reason for Consult: Nutrition Recommendations Reason for Consult: Diet education Occupational Therapy Evaluate and Treat [CONS] Routine Comment: Reason For Exam: Neuro deficits Physical Therapy Evaluation and Treat [CONS] Routine Comment: Reason For Exam: Neuro deficits 06/16/18 19:57 Speech Therapy Evaluation and Treat [CONS] Routine Reason For Exam: swallow eval 06/17/18 07:02 Consult to Physician [CONS] Routine Comment: Consulting Provider: ARPITA LIZARRAGA Physician Instructions: Reason For Exam: TIA [facility] Reason for admission: TIA Condition: Stable Hospital course: Patient is a 48-year-old male with PMHx of HTN, HIV on HAART, DM2 (uncontrolled), h/o bone cancer s/p left mandible resection (11 yrs ago), who presents to ER with complaint of left sided facial droop, right-sided weakness. Patient states that he went to take a nap, he was fine but when when he woke up he noticed the weakness and the facial droop. Pt and mother at the bedside report that he was hospitalized at the beginning of May for the same symptoms, he saw the neurologist and his symptoms gradually resolved. Pt also complaint of frontal headache, nausea and dry hives, he denies any dizziness, denies any visual changes, he denies extremities weakness, denies any recent illness, fever or chills. Pt had an MRI in the ER that was negative, neurology had recommended admission for his acute symptoms. Imaging studies remained unremarkable. Patient was subsequently discharged load primary care physician and also neurologist. CT abdomen and pelvis that showed a spleen lesion which was discussed with the patient will follow with his PCP for further evaluation. The patient unfortunately left AGAINST MEDICAL ADVICE 1. Acute TIA 3. HTN hypertension 4. HIV on HAART (Unknown CD4 count and viral load) 5. DM type 2 (uncontrolled) 6. H/o bone cancer s/p left mandible resection 7. Back pain 8. Peritoneal irritation 9. Small lesion in the spleen Disposition: DC-07 LEFT AGAINST MED ADVICE Core Measure Documentation - Palliative Care Palliative Care/ Comfort Measures: Not Applicable - Core Measures Any of the following diagnoses?: none Exam - Physical Exam Narrative exam: General appearance: Present: no acute distress - EENT Eyes: Present: PERRL ENT: hearing intact, mild oral depression on the left, but noted surgical changes - Neck Neck: Present: normal ROM - Respiratory Respiratory effort: normal Respiratory: bilateral: CTA - Cardiovascular Rhythm: regular - Extremities Extremities: no ischemia, No edema Peripheral Pulses: within normal limits - Abdominal General gastrointestinal: Present: tender, right lower quadrant Male genitourinary: Present: deferred - Rectal Rectal Exam: deferred - Integumentary Integumentary: Present: warm, dry - Musculoskeletal Musculoskeletal: right sided weakness (facial). Paraspinal tenderness at the level of L5 - Neurologic Neurologic: moves all extremities - Constitutional Vitals: Temp Pulse Resp BP Pulse Ox 98.4 F 90 20 131/83 99 06/19/18 13:44 06/19/18 14:48 06/19/18 13:44 06/19/18 14:48 06/19/18 13:44 Plan Follow up with: FISH DAWKINS MD [Staff Physician] - 7 Days MCCARR LISA AGRAWAL MD [Primary Care Provider] - 3-5 Days Prescriptions: Carvedilol [Coreg] 12.5 mg PO BID #60 tablet oxyCODONE /ACETAMINOPHEN [Percocet 5/325 mg] 1 tab PO Q6H PRN #14 tablet PRN Reason: Pain, Moderate (4-6) Lisinopril [Zestril TAB] 40 mg PO QDAY #30 tablet Ondansetron [Zofran Odt] 4 mg PO Q6H PRN #30 tab.rapdis PRN Reason: Nausea
[2018-06-19 16:51] VITALS: BP 176/107
[2018-06-19] MEDS: APRESOLINE IV PRN (17:07)
[2018-06-19] MEDS ORDERED: REGLAN IV ONE (17:35)
[2018-06-19] MEDS ORDERED: LANTUS SUB-Q SCH (22:00)
== END 2018-06-19 17:50 | disposition left against medical advice (07) | DRG 69 ==
LOC: ED 18:28 → 4A 19:41 → 3A 06-18 17:04
PROVIDERS: ADMIT Internal Medicine; ATTEND Internal Medicine
DX: G45.9 Transient cerebral ischemic attack, unspecified (principal); K65.9 Peritonitis, unspecified; B20 Human immunodeficiency virus [HIV] disease; R29.701 NIHSS score 1; I16.0 Hypertensive urgency; I10 Essential (primary) hypertension; E11.9 Type 2 diabetes mellitus without complications; Z85.830 Personal history of malignant neoplasm of bone; Z79.899 Other long term (current) drug therapy; Z79.82 Long term (current) use of aspirin; Z79.4 Long term (current) use of insulin; Z82.49 Family history of ischemic heart disease and other diseases of the circulatory system
CPT/HCPCS: 36415; 70450; 70544; 70548; 70551; 70552; 71045; 72131; 72202; 74177; 78227; 80048; 80061; 80076; 80307; 81003; 82962; 83036; 84484; 85025; 85610; 85670; 85730; 87116; 93005; 93010; 93880; 96374; G0378; A9270-GY; A9537; A9577; J0360; J1815; J2060; J2270; J2405; J2765; J2805; J2930; J2997; J7030; Q9967

== ENCOUNTER 2018-07-16 13:20 | Emergency (ER) | payer OTHER ==
--- NOTE | 2018-07-16 13:58 | XRay Report ---
PORTABLE CHEST: Chest pain. An AP portable view of the chest demonstrates a normal cardiac contour considering the limits of this technique. The lungs are clear with no evidence of infiltrate, fluid or failure. No change compared to recent exam of June 16, 2018. IMPRESSION: Normal portable chest.
[2018-07-16 14:05] LABS: Basophils % (Auto) 0.6 % (0.0-1.8); Eosinophils # (Auto) 0.1 K/mm3 (0.0-0.4); Hematocrit 44.8 % (35.5-45.6); Hemoglobin 15.3 gm/dl (11.8-15.2); Lymphocytes # (Auto) 1.5 K/mm3 (1.2-5.4); Lymphocytes % (Auto) 22.1 % (13.4-35.0); Mean Corpuscular HGB Conc 34 % (32-34); Mean Corpuscular Volume 82 fl (84-94); Monocytes # (Auto) 0.4 K/mm3 (0.0-0.8); Monocytes % (Auto) 6.1 % (0.0-7.3); Platelet Count 264 K/mm3 (140-440); Red Blood Count 5.45 M/mm3 (3.65-5.03); Red Cell Distribution Width 14.4 % (13.2-15.2)
[2018-07-16] MEDS ORDERED: ZOFRAN IV ONE (14:14)
[2018-07-16] MEDS ORDERED: SUBLIMAZE IV ONE ×2 (14:14→18:19)
[2018-07-16 14:19] LABS: INR 0.96 (0.87-1.13); Partial Thromboplastin Time 27.7 Sec. (24.2-36.6)
[2018-07-16 14:34] LABS: Alanine Aminotransferase 21 units/L (7-56); Albumin 4.2 g/dL (3.9-5); BUN/Creatinine Ratio 19; Blood Urea Nitrogen 19 mg/dL (9-20); Calcium 9.4 mg/dL (8.4-10.2); Hemolysis Index 4
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
[2018-07-16] MEDS ORDERED: NACL 0.9% 1000 ML 1,000 ML IV ONE (15:36)
[2018-07-16] MEDS ORDERED: REGLAN IV ONE (18:19)
[2018-07-16] MEDS ORDERED: REGLAN ONE (18:22)
--- NOTE | 2018-07-16 21:21 | Event Note ---
Date: 07/16/18 48 YO Male with HTN, DM, HIV presents to ED for evaluation of Chest pain. Pt seen and evaluated in ED and treated IAW chest pain protocol. Cardiac enzymes, ekg, telemetry were unremarkable. CTA Chest found to be negative for PE. Pt medically optimized and found to have atypical chest pain secondary to GERD. Pt treated with PPI therapy. Pt discharged home and instructed to f/u pcp 3-5 days, as well as F/U with Cardiology 3-5 days for further care and evaluation, and F/U ID at discharge for further are and evaluation. Exam: - General Limitations: No Limitations General appearance: alert, in no apparent distress - Head Head exam: Present: atraumatic, normocephalic - Eye Eye exam: Present: normal appearance, PERRL Pupils: Present: normal accommodation - ENT ENT exam: Present: mucous membranes moist - Neck Neck exam: Present: normal inspection - Respiratory Respiratory exam: Present: normal lung sounds bilaterally. Absent: respiratory distress - Cardiovascular Cardiovascular Exam: Present: regular rate, normal rhythm. Absent: systolic murmur, diastolic murmur, rubs, gallop - GI/Abdominal GI/Abdominal exam: Present: soft, normal bowel sounds. Absent: distended, tenderness, guarding, rebound - Rectal Rectal exam: Present: deferred - Extremities Exam Extremities exam: Present: normal inspection - Back Exam Back exam: Present: normal inspection - Neurological Exam Neurological exam: Present: alert, oriented X3 - Psychiatric Psychiatric exam: Present: normal affect, normal mood - Skin Skin exam: Present: warm, dry, intact, normal color. Absent: rash
[2018-07-16] MEDS ORDERED: PHENERGAN PR ONE (21:22)
[2018-07-16 22:01] VITALS: BP 179/91
--- NOTE | 2018-07-16 22:39 | Cat Scan Report ---
PROCEDURE: CT ANGIO CHEST TECHNIQUE: Computerized tomographic angiography of the chest was performed after the IV injection of iodinated nonionic contrast including image processing. The image data was postprocessed using 2-di mensional multiplanar reformatted (MPR) and 3-dimensional (MIP and/or volume rendered) techniques. Au tomated exposure control, adjustment of mA and/or kV according to patient size, or iterative reconstr uction dose optimization techniques were utilized. HISTORY: dyspnea COMPARISONS: 05/16/2018 . FINDINGS: Heart and pericardium: Left ventricular configuration to the heart suggestive of systemic hypertensio n. Thoracic aorta: Normal. Pulmonary vasculature: Suboptimal contrast bolus to assess for distal embolus. No central embolus.. Lymph nodes: No enlarged thoracic lymph nodes. Multiple small bilateral axillary lymph nodes unchang ed from previous. Largest right axillary lymph node short axis measures 8 mm. AP window lymph node me asures 7 mm short axis, unchanged Lungs: Persistent central right upper lobe well-circumscribed 7 x 10 mm nodule coronal series 105 im age 159, axial series 2 image 45. Ill-defined right greater than left basal increased interstitial ma rkings appear to be new from the previous but the previous was motion degraded. No focal consolidatio n or pleural effusion. Pleural space: No effusion, thickening, or pneumothorax. Musculoskeletal structures: No significant abnormality. Upper abdominal structures: Hepatomegaly. Fatty infiltrated liver. Splenomegaly. Decompressed stomac h.. Asymmetric right greater than left gynecomastia unchanged from previous. IMPRESSION: Interval development of right greater than left basilar interstitial infiltrates. No pleu ral effusion. No focal consolidation. Stable 7 x 10 mm right upper lobe central pulmonary nodule. Multiple small axillary and mediastinal lymph nodes. Presumably the findings are infectious or inflam matory. Less likely heart failure or neoplastic. Suboptimal contrast bolus timing to assess for distal pulmonary embolus. No central embolus. Left ventricular configuration of the heart suggestive of systemic hypertension. Fatty liver. Hepatosplenomegaly. Stable asymmetric right greater than left gynecomastia. This document is electronically signed by Fatou Curran MD., Jul 16 2018 10:37:36 PM ET
== END 2018-07-16 22:02 | disposition admitted as inpatient to this hospital (09) ==
LOC: ED 13:20
DX: K92.0 Hematemesis (principal); R07.89 Other chest pain; I10 Essential (primary) hypertension; E11.9 Type 2 diabetes mellitus without complications; Z21 Asymptomatic human immunodeficiency virus [HIV] infection status; F17.200 Nicotine dependence, unspecified, uncomplicated; Z79.4 Long term (current) use of insulin; Z79.82 Long term (current) use of aspirin
CPT/HCPCS: 36415; 71045; 71275; 80053; 82271; 84484; 85025; 85610; 85730; 93005; 93010; 96361; 96374; 96375; 96376; 99285; J2405; J2765; J3010; J7030; Q9967

== ENCOUNTER 2018-08-30 16:35 | Emergency (ER) | payer SELFPAY ==
--- NOTE | 2018-08-30 16:48 | Event Note ---
ED Screening Note Date of service: 08/30/18 Time: 16:43 ED Screening Note: 48 y/o male comes in for increase weakness and nausea started about 1445. Patient reports in had a stroke last month and went to [place]. This initial assessment/diagnostic orders/clinical plan/treatment(s) is/are subject to change based on patients health status, clinical progression and re- assessment by fellow clinical providers in the ED. Further treatment and workup at subsequent clinical providers discretion. Patient/guardian urged not to elope from the ED as their condition may be serious if not clinically assessed and managed. Initial orders include:
--- NOTE | 2018-08-30 17:00 | Consultation ---
History of Present Illness Consult date: 08/30/18 Medications and Allergies Allergies Allergy/AdvReac Type Severity Reaction Status Date / Time No Known Allergies Allergy Verified 07/23/13 06:34 Home Medications Medication Instructions Recorded Confirmed Last Taken Type Efavirenz/Emtricit/Tenofovr Df 1 each PO QDAY 07/23/13 06/17/18 Unknown History [Atripla Tablet] Aspirin 325 mg PO QDAY #30 tablet 05/19/18 06/17/18 Unknown Rx AtorvaSTATin [Lipitor] 40 mg PO QHS #30 tablet 05/19/18 06/17/18 Unknown Rx Insulin Glargine [Lantus VIAL] 20 units SUB-Q QHS #30 units 05/19/18 06/17/18 Unknown Rx clonazePAM [KlonoPIN] 0.5 mg PO BID PRN #30 tablet 05/19/18 06/17/18 Unknown Rx Carvedilol [Coreg] 12.5 mg PO BID #60 tablet 06/19/18 Unknown Rx Lisinopril [Zestril TAB] 40 mg PO QDAY #30 tablet 06/19/18 Unknown Rx Ondansetron [Zofran Odt] 4 mg PO Q6H PRN #30 tab.rapdis 06/19/18 Unknown Rx oxyCODONE /ACETAMINOPHEN [Percocet 1 tab PO Q6H PRN #14 tablet 06/19/18 Unknown Rx 5/325 mg] Pantoprazole [Protonix TAB] 20 mg PO QDAY #30 tablet. 07/16/18 Unknown Rx Physical Examination - Vital Signs Vital Signs: Vital Signs Temp Pulse Resp BP Pulse Ox 98.2 F 122 H 20 170/101 94 08/30/18 16:41 08/30/18 16:41 08/30/18 16:41 08/30/18 16:41 08/30/18 16:41 - Level of Consciousness 1a. Level of Consciousness: alert/keenly responsive - LOC Questions 1b. LOC Questions: answers both correctly - LOC Command 1c. LOC Commands: performs tasks correctly - Best Gaze 2. Best Gaze: normal - Visual 3. Visual: no visual loss - Facial Palsy 4. Facial Palsy: minor paralysis - Motor Arm 5a. Motor Arm Left: drift 5b. Motor Arm Right: no drift - Motor Leg 6a. Motor Leg Left: drift 6b. Motor Leg Right: no drift - Limb Ataxia 7. Limb Ataxia: absent - Sensory 8. Sensory: mild/moderate sensory loss - Best Language 9. Best Language: no aphasia - Dysarthria 10. Dysarthria: normal - Extinction and Inattention 11. Extinction/Inattention: no abnormality - Scoring Total Score: 4 Stroke Severity: Minor Stroke Assessment and Plan Date of Service 08/30/2018 [facility] Comments: Last time known well: _ 1445 Door time: _1640 [facility] contacted: _1647 [facility] at bedside: _1652 NIHSS assessment time: _1659 consult end time: _1710 Impression: worsening left sided weakness Consistent with new Acute Ischemic Stroke vs Post-stroke Recrudescence Does (not) meet Large Vessel Occlusion (LVO) screening criteria (Aphasia, Neglect, Gaze deviation/preference, Dense hemiparesis, or Visual field deficits on exam), therefore advanced imaging (CTA head and neck and CTP brain) is (not) indicated. Differential Diagnosis: 1. Cardioembolic stroke 2. Small vessel disease/ lacune 3. Thromboembolic, [id number] mechanism 4. Hypercoagulable state-related infarct 5. Transient ischemic attack 6. Thrombotic mechanism, large artery disease tPA decision and other recommendations: _ Patient is not a tPA candidate Head CT did not show any acute hemorrhage. reviewed report (if available) and images Reason: _ recent CVA Patient is not a RICHAR candidate: _ Thrombectomy not considered since large proximal intracranial vessel occlusion is not suspected. Recommendations dysphagia screen ASA if no contraindications head of bed flat IV fluids NS Stroke work up with: noncontrast brain MRI, Consider head and neck MRA (or CTA), 2D ECHO, lipid panel, HbA1c (Goal LDL<70, HbA1c<7) (all must have been done last week) inpatient neurology consultation Inpatient stroke evaluation as per Neurology/ Internal Medicine Discussed with ED physician/medical staff Please contact [facility] Nav[facility] to reach me if further questions/concerns arise. Reason for Stroke Alert and History of Present Illness: _ Patient is a(n) 48 years old male, with history of possible recent stroke 08/24 received IV tPA (MRI is not available to me so unclear if MRI confirmed stroke or not) he states he has been weak since then but today starting at 14:45 left weakness got worse. Has history of HIV and Diabetes Mellitus. Review of Systems: Constitutional: Negative except as documented in history of present illness. Eye: Negative except as documented in history of present illness. Ear/Nose/Mouth/Throat: Negative except as documented in history of present illness. Respiratory: Negative except as documented in history of present illness. Cardiovascular: Negative except as documented in history of present illness. Gastrointestinal: Negative except as documented in history of present illness. Musculoskeletal: Negative except as documented in history of present illness. Neurologic: Negative except as documented in history of present illness. Examination: NIHSS Details documented in the note ___ 4 Medical Decision Making: - Extensive number of diagnosis or management options are considered above. - Extensive amount of complex data reviewed. - High risk of complication and/or morbidity or mortality are associated with differential diagnostic considerations above. - There may be Uncertain outcome and increased probability of prolonged functional impairment or high probability of severe prolonged functional impairment associated with some of these differential diagnoses. Medical Data Reviewed: 1.Data reviewed include clinical labs, radiology, Medical Tests; 2.Tests results discussed w/performing or interpreting physician; 3.Obtaining/reviewing old medical records; 4.Obtaining case history from another source; 5.Independent review of image, tracing or specimen. When possible Patient/family were informed the Neurology Consult would happen via TeleHealth consult by way of interactive audio and video telecommunications and consented to receiving care in this manner. Case discussed with the Medical staff. Critical Care notation: I was called to see this critical patient emergently. I personally evaluated this critical patient for acute stroke evaluation and determining their eligibility for IV Alteplase and interventional therapies. I have spent approximately _18_ minutes with the patient, including time at bedside, time discussing the case with other physicians, reviewing plan of care, and time independently reviewing the records and scans.
[2018-08-30] MEDS ORDERED: ZOFRAN IV ONE (17:08)
[2018-08-30] MEDS ORDERED: PEPCID IV ONE (17:10)
[2018-08-30] MEDS ORDERED: BENTYL IM ONE (17:10)
[2018-08-30 17:15] LABS: Basophils # (Auto) 0.1 K/mm3 (0.0-0.1); Eosinophils # (Auto) 0.2 K/mm3 (0.0-0.4); Eosinophils % (Auto) 2.2 % (0.0-4.3); Hematocrit 45.9 % (35.5-45.6); Hemoglobin 16.1 gm/dl (11.8-15.2); Lymphocytes # (Auto) 2.3 K/mm3 (1.2-5.4); Lymphocytes % (Auto) 28.5 % (13.4-35.0); Mean Corpuscular HGB Conc 35 % (32-34); Mean Corpuscular Volume 81 fl (84-94); Monocytes # (Auto) 0.8 K/mm3 (0.0-0.8); Monocytes % (Auto) 10.1 % (0.0-7.3); Platelet Count 326 K/mm3 (140-440); Red Blood Count 5.65 M/mm3 (3.65-5.03); Red Cell Distribution Width 13.7 % (13.2-15.2)
[2018-08-30 17:25] LABS: INR 1.04 (0.87-1.13)
[2018-08-30] MEDS ORDERED: MORPHINE IV ONE (17:25)
[2018-08-30 17:26] LABS: Partial Thromboplastin Time 25.7 Sec. (24.2-36.6)
[2018-08-30 17:42] LABS: BUN/Creatinine Ratio 10; Blood Urea Nitrogen 9 mg/dL (9-20); Calcium 9.2 mg/dL (8.4-10.2); Hemolysis Index 5
[2018-08-30] MEDS ORDERED: NACL 0.9% 1000 ML 1,000 ML IV ONE (17:44)
[2018-08-30] MEDS ORDERED: GEODON IM ONE (18:07)
[2018-08-30] MEDS ORDERED: WATER FOR INJ Sterile (PF) 10 ML ONE (18:12)
[2018-08-30 18:14] LABS: Alanine Aminotransferase 20 units/L (7-56); Albumin 4.3 g/dL (3.9-5); BUN/Creatinine Ratio 10; Blood Urea Nitrogen 9 mg/dL (9-20); Calcium 9.4 mg/dL (8.4-10.2); Hemolysis Index 2
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
--- NOTE | 2018-08-30 20:28 | XRay Report ---
Abdominal series with frontal chest 3 views INDICATION: Chest and abdominal pain IMPRESSION: The lungs are clear. Nonobstructive bowel gas pattern. No free air. Signer Name: Kamar Raygoza MD Signed: 08/30/2018 8:24 PM Workstation Name: [id number]
[2018-08-31 00:34] VITALS: BP 122/78
== END 2018-08-31 00:50 | disposition home or self-care (01) ==
LOC: ED 16:35
DX: E11.43 Type 2 diabetes mellitus with diabetic autonomic (poly)neuropathy (principal); K31.84 Gastroparesis; R11.2 Nausea with vomiting, unspecified; Z79.82 Long term (current) use of aspirin; Z79.84 Long term (current) use of oral hypoglycemic drugs; I10 Essential (primary) hypertension; B20 Human immunodeficiency virus [HIV] disease; Z98.890 Other specified postprocedural states; Z86.73 Personal history of transient ischemic attack (TIA), and cerebral infarction without residual deficits; Z79.899 Other long term (current) drug therapy
CPT/HCPCS: 36415; 70450; 74022; 80048; 80053; 82962; 83690; 84484; 85025; 85610; 85670; 85730; 93005; 93010; 96361; 96372; 96374; 96375; 99285; J0500; J2270; J2405; J3486; J7030

== ENCOUNTER 2018-09-02 00:55 | Emergency (ER) | payer SELFPAY ==
[2018-09-02] MEDS ORDERED: GEODON IM ONE (01:09)
[2018-09-02] MEDS ORDERED: NACL 0.9% 1000 ML 1,000 ML IV ONE (01:09)
[2018-09-02] MEDS ORDERED: ZOFRAN IV ONE (01:09)
[2018-09-02] MEDS ORDERED: MORPHINE IV ONE (01:09)
[2018-09-02] MEDS ORDERED: PEPCID IV ONE (01:09)
[2018-09-02 01:28] LABS: Basophils % (Auto) 0.4 % (0.0-1.8); Eosinophils # (Auto) 0.1 K/mm3 (0.0-0.4); Eosinophils % (Auto) 1.7 % (0.0-4.3); Hematocrit 47.7 % (35.5-45.6); Hemoglobin 16.3 gm/dl (11.8-15.2); Lymphocytes # (Auto) 2.2 K/mm3 (1.2-5.4); Lymphocytes % (Auto) 26.2 % (13.4-35.0); Mean Corpuscular HGB Conc 34 % (32-34); Mean Corpuscular Volume 83 fl (84-94); Monocytes # (Auto) 0.8 K/mm3 (0.0-0.8); Monocytes % (Auto) 9.8 % (0.0-7.3); Red Blood Count 5.73 M/mm3 (3.65-5.03); Red Cell Distribution Width 13.7 % (13.2-15.2)
[2018-09-02 01:30] LABS: Platelet Count 274 K/mm3 (140-440)
[2018-09-02 01:53] LABS: Alanine Aminotransferase 19 units/L (7-56); Albumin 3.9 g/dL (3.9-5); BUN/Creatinine Ratio 10; Blood Urea Nitrogen 8 mg/dL (9-20); Calcium 9.1 mg/dL (8.4-10.2); Hemolysis Index 17
--- NOTE | 2018-09-02 03:06 | Cat Scan Report ---
CT abdomen pelvis w con INDICATION / CLINICAL INFORMATION: NV pain lumbar 2wk sp LP. TECHNIQUE: All CT scans at this location are performed using CT dose reduction for ALARA by means of automated e xposure control. COMPARISON: None available. FINDINGS: Limited lower thoracic images show no acute abnormality. ABDOMEN: The gallbladder, liver, pancreas and kidneys are normal. The spleen is not enlarged. There is a 1.5 cm hypodense area within the spleen that has a benign appearance. There are 2 ventral hernias. The left paramedian area there is herniation of fat. More inferiorly on the right side a loop of nonobstructed small bowel is hernia. Pelvis: The appendix is normal. No inflammatory changes are seen in the pelvis. Skeletal structures are normal. IMPRESSION: 1. Ventral hernias containing nonobstructed small bowel and fat. 2. No acute abdominal or pelvic abnormality. Signer Name: Livan Rider MD Signed: 09/02/2018 3:02 AM Workstation Name: [id number]
[2018-09-02] MEDS ORDERED: K-DUR PO ONE (03:36)
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
[2018-09-02 04:26] VITALS: BP 101/66
[2018-09-02] MEDS ORDERED: MORPHINE IM ONE (06:08)
[2018-09-02] MEDS ORDERED: MORPHINE ONE (06:11)
== END 2018-09-02 06:20 | disposition home or self-care (01) ==
LOC: ED 00:55
DX: E11.43 Type 2 diabetes mellitus with diabetic autonomic (poly)neuropathy (principal); K31.84 Gastroparesis; I10 Essential (primary) hypertension; E87.6 Hypokalemia; B20 Human immunodeficiency virus [HIV] disease; Z87.891 Personal history of nicotine dependence; Z79.899 Other long term (current) drug therapy
CPT/HCPCS: 36415; 74177; 80053; 85025; 96372; 96374; 96375; 99284; J2270; J2405; J3486; J7030; Q9967

== ENCOUNTER 2018-10-01 19:12 | Emergency (ER) | payer SELFPAY ==
--- NOTE | 2018-10-01 19:23 | Emergency Department Report ---
Blank Doc - Documentation Documentation: This is a 48-year-old male that presents with CP, lower back pains, nausea and vomiting. Also stated has SOB. This initial assessment/diagnostic orders/clinical plan/treatment(s) is/are subject to change based on patient's health status, clinical progression and re-assessment by fellow clinical providers in the ED. Further treatment and workup at subsequent clinical providers discretion. Patient/guardians urged not to elope from the ED as their condition may be serious if not clinically assessed and managed. Initial orders include: 1- Patient sent to MAIN ED for further evaluation and treatment 2- labs 3- EKG 4- CXR
[2018-10-01 19:57] LABS: Basophils % (Auto) 0.3 % (0.0-1.8); Eosinophils # (Auto) 0.1 K/mm3 (0.0-0.4); Eosinophils % (Auto) 0.6 % (0.0-4.3); Hematocrit 46.3 % (35.5-45.6); Hemoglobin 15.7 gm/dl (11.8-15.2); Lymphocytes # (Auto) 1.6 K/mm3 (1.2-5.4); Lymphocytes % (Auto) 13.5 % (13.4-35.0); Mean Corpuscular HGB Conc 34 % (32-34); Mean Corpuscular Volume 83 fl (84-94); Monocytes # (Auto) 0.5 K/mm3 (0.0-0.8); Monocytes % (Auto) 4.2 % (0.0-7.3); Platelet Count 360 K/mm3 (140-440); Red Blood Count 5.59 M/mm3 (3.65-5.03)
[2018-10-01 20:08] LABS: INR 0.96 (0.87-1.13); Partial Thromboplastin Time 20.6 Sec. (24.2-36.6)
[2018-10-01] MEDS ORDERED: NACL 0.9% 1000 ML 1,000 ML IV ONE ×2 (20:16→21:19)
[2018-10-01] MEDS ORDERED: ZOFRAN IV ONE (20:16)
[2018-10-01] MEDS ORDERED: DILAUDID IV ONE (20:17)
[2018-10-01] MEDS ORDERED: PEPCID IV ONE (20:17)
--- NOTE | 2018-10-01 20:19 | XRay Report ---
CHEST 2 VIEWS INDICATION / CLINICAL INFORMATION: Chest Pain. COMPARISON: None available. FINDINGS: SUPPORT DEVICES: None. HEART / MEDIASTINUM: No significant abnormality. LUNGS / PLEURA: No significant pulmonary or pleural abnormality. No pneumothorax. ADDITIONAL FINDINGS: No significant additional findings. IMPRESSION: 1. No acute findings. Signer Name: Kamar Raygoza MD Signed: 10/01/2018 8:14 PM Workstation Name: [id number]
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
[2018-10-01 20:30] LABS: Alanine Aminotransferase 11 units/L (7-56); Albumin 4.2 g/dL (3.9-5); BUN/Creatinine Ratio 13; Blood Urea Nitrogen 8 mg/dL (9-20); Calcium 9.5 mg/dL (8.4-10.2); Hemolysis Index 5
[2018-10-01] MEDS ORDERED: REGLAN IV ONE (20:45)
[2018-10-01] MEDS ORDERED: BENADRYL IV ONE (20:45)
[2018-10-01 21:19] LABS: Bilirubin,Urine NEG (Negative); Blood,Urine NEG (Negative); Color,Urine Yellow (Yellow); Urobilinogen,Urine < 2.0 mg/dL (<2.0)
[2018-10-01] MEDS ORDERED: HumuLIN R IV ONE (21:19)
--- NOTE | 2018-10-01 22:06 | Cat Scan Report ---
CT ABDOMEN AND PELVIS WITH IV CONTRAST INDICATION: Abdominal pain nausea and vomiting. COMPARISON: 09/02/2018 TECHNIQUE: Axial CT images were obtained through the abdomen and pelvis after 100 mL IV contrast. All CT scans a t this location are performed using CT dose reduction for ALARA by means of automated exposure contro l. FINDINGS -- ABDOMEN: Lung Bases: No acute abnormality. Liver: Normal. Gallbladder: Cholelithiasis. No gallbladder wall thickening.. Bile Ducts: Normal. Pancreas: Normal. Spleen: Normal. Adrenals: Normal. Right Kidney and Proximal Ureter: Normal. Left Kidney and Proximal Ureter: Normal. Stomach and Bowel: Normal. Lymph Nodes: No significant adenopathy. Aorta: No significant abnormality. IVC: Normal. Additional Findings: Incisional hernia is identified along the anterior abdominal wall containing fat . There is one incisional hernia that contains a nonincarcerated loop of small bowel just below the l evel the umbilicus.. FINDINGS -- PELVIS: Urinary Bladder and Distal Ureters: Normal. Reproductive Organs: No acute abnormality. Appendix: Normal. Bowel: No acute abnormality. Free Fluid: None. Lymph Nodes: No significant adenopathy. Additional Findings: None. Skeletal System: No acute abnormality. IMPRESSION: 1. No acute process in the abdomen or pelvis. Cholelithiasis and ventral abdominal hernia, unchanged. Signer Name: Kamar Raygoza MD Signed: 10/01/2018 10:01 PM Workstation Name: [id number]
[2018-10-01] MEDS ORDERED: ROCEPHIN/NS 1 GM/50 ML 1 GM/50 ML BAG IV ONE (22:18)
[2018-10-02] MEDS ORDERED: COREG PO ONE (01:32)
[2018-10-02 03:33] VITALS: BP 127/66
== END 2018-10-02 03:45 | disposition home or self-care (01) ==
LOC: ED 19:12
DX: E11.43 Type 2 diabetes mellitus with diabetic autonomic (poly)neuropathy (principal); K31.84 Gastroparesis; N39.0 Urinary tract infection, site not specified; I10 Essential (primary) hypertension; I63.9 Cerebral infarction, unspecified; E11.9 Type 2 diabetes mellitus without complications; F17.200 Nicotine dependence, unspecified, uncomplicated; Z79.899 Other long term (current) drug therapy; Z79.4 Long term (current) use of insulin
CPT/HCPCS: 36415; 71046; 74177; 80053; 81001; 82962; 83690; 84484; 85025; 85379; 85610; 85730; 87086; 93005; 93010; 96361; 96365; 96375; 99285; J0696; J1170; J1200; J2405; J2765; J7030; Q9967; J1815

== ENCOUNTER 2018-10-18 08:52 | Emergency (ER) | payer SELFPAY ==
[2018-10-18] MEDS ORDERED: ASPIRIN PO ONE (09:06)
--- NOTE | 2018-10-18 10:04 | XRay Report ---
CHEST 1 VIEW INDICATION / CLINICAL INFORMATION: Chest Pain. COMPARISON: None available. FINDINGS: SUPPORT DEVICES: None. HEART / MEDIASTINUM: No significant abnormality. LUNGS / PLEURA: No significant pulmonary or pleural abnormality. No pneumothorax. ADDITIONAL FINDINGS: No significant additional findings. IMPRESSION: 1. No acute findings. Signer Name: Kamar Raygoza MD Signed: 10/18/2018 10:00 AM Workstation Name: [id number]
[2018-10-18 10:33] LABS: Basophils # (Auto) 0.1 K/mm3 (0.0-0.1); Basophils % (Auto) 0.7 % (0.0-1.8); Eosinophils # (Auto) 0.2 K/mm3 (0.0-0.4); Eosinophils % (Auto) 3.4 % (0.0-4.3); Hematocrit 45.4 % (35.5-45.6); Hemoglobin 15.6 gm/dl (11.8-15.2); Lymphocytes # (Auto) 1.6 K/mm3 (1.2-5.4); Lymphocytes % (Auto) 21.9 % (13.4-35.0); Mean Corpuscular HGB Conc 34 % (32-34); Mean Corpuscular Volume 84 fl (84-94); Monocytes # (Auto) 0.5 K/mm3 (0.0-0.8); Monocytes % (Auto) 7.1 % (0.0-7.3); Platelet Count 340 K/mm3 (140-440); Red Blood Count 5.42 M/mm3 (3.65-5.03)
[2018-10-18 11:05] LABS: BUN/Creatinine Ratio 10; Blood Urea Nitrogen 7 mg/dL (9-20); Calcium 9.6 mg/dL (8.4-10.2); Hemolysis Index 129
[2018-10-18] MEDS ORDERED: REGLAN IV ONE (11:55)
[2018-10-18] MEDS ORDERED: ATIVAN IV ONE (11:55)
[2018-10-18] MEDS ORDERED: ZOFRAN ONE (11:57)
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
[2018-10-19 08:24] VITALS: BP 148/92
== END 2018-10-19 08:24 | disposition home or self-care (01) ==
LOC: ED 08:52
DX: E11.43 Type 2 diabetes mellitus with diabetic autonomic (poly)neuropathy (principal); K31.84 Gastroparesis; I10 Essential (primary) hypertension; I25.2 Old myocardial infarction; F17.200 Nicotine dependence, unspecified, uncomplicated; Z79.899 Other long term (current) drug therapy; Z79.4 Long term (current) use of insulin
CPT/HCPCS: 36415; 71045; 80048; 82962; 84484; 85025; 93005; 93010; 96374; 96375; 99284; J2060; J2405; J2765

== ENCOUNTER 2018-10-31 03:16 | Emergency (ER) | payer SELFPAY ==
[2018-10-31 03:55] LABS: Basophils # (Auto) 0.2 K/mm3 (0.0-0.1); Eosinophils # (Auto) 0.2 K/mm3 (0.0-0.4); Eosinophils % (Auto) 2.5 % (0.0-4.3); Hemoglobin 15.8 gm/dl (11.8-15.2); Lymphocytes % (Auto) 22.5 % (13.4-35.0); Monocytes # (Auto) 0.5 K/mm3 (0.0-0.8); Monocytes % (Auto) 5.2 % (0.0-7.3)
[2018-10-31 04:11] LABS: Hematocrit 47.1 % (35.5-45.6); Mean Corpuscular HGB Conc 34 % (32-34); Mean Corpuscular Volume 83 fl (84-94); Platelet Count 279 K/mm3 (140-440); Red Blood Count 5.68 M/mm3 (3.65-5.03); Red Cell Distribution Width 14.1 % (13.2-15.2)
[2018-10-31 04:16] LABS: Alanine Aminotransferase 14 units/L (7-56); Albumin 3.9 g/dL (3.9-5); BUN/Creatinine Ratio 7; Blood Urea Nitrogen 5 mg/dL (9-20); Calcium 9.6 mg/dL (8.4-10.2); Hemolysis Index 16
[2018-10-31] MEDS ORDERED: NACL 0.9% 1000 ML 1,000 ML IV ONE (04:22)
[2018-10-31] MEDS ORDERED: ZOFRAN IV ONE (04:22)
[2018-10-31 04:23] LABS: Bilirubin,Urine NEG (Negative); Blood,Urine NEG (Negative); Color,Urine Yellow (Yellow); Mucus,Urine FEW /HPF; Protein,Urine <15 mg/dL mg/dL (Negative); Urobilinogen,Urine < 2.0 mg/dL (<2.0)
[2018-10-31] MEDS ORDERED: REGLAN IV ONE (04:23)
[2018-10-31] MEDS ORDERED: BENADRYL IV ONE (04:23)
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
[2018-10-31 06:15] VITALS: BP 168/103
== END 2018-10-31 05:45 | disposition home or self-care (01) ==
LOC: ED 03:16
DX: K31.84 Gastroparesis (principal); I10 Essential (primary) hypertension; E11.9 Type 2 diabetes mellitus without complications; F17.200 Nicotine dependence, unspecified, uncomplicated; Z86.73 Personal history of transient ischemic attack (TIA), and cerebral infarction without residual deficits; Z79.899 Other long term (current) drug therapy
CPT/HCPCS: 36415; 80053; 81001; 83690; 85025; 96361; 96374; 96375; 99283; J1200; J2405; J2765; J7030